=== PATIENT | male | born 1975 | race Two or more races ===

== ENCOUNTER 2020-06-05 10:53 | Outpatient (REF) | payer OTHER, SELFPAY ==
--- NOTE | ~2020-06-05 | XR_ITS ---
EXAMINATION: XR KNEE, LEFT CLINICAL INFORMATION: Left knee pain COMPARISON: None TECHNIQUE: Four views of the left knee. FINDINGS: There is small suprapatellar effusion. There is no fracture or dislocation or destructive process. No focal joint narrowing or erosive change or chondrocalcinosis. Bony mineralization appears normal. Hoffa's fat pad appears normal. There is mild spurring at the quadriceps insertion patella and at the origin patellar tendon lower patella. XR/XR knee LT 4V IMPRESSION: 1. Small suprapatellar effusion. No fracture, dislocation, or arthropathy. 2. Mild spurring extensor mechanism at insertion quadriceps tendon and origin patellar tendon.
== END 2020-06-05 10:54 | disposition home or self-care (01) ==
LOC: HO.HMGCX 10:53
PROVIDERS: Visit Provider Nurse Practitioner Family
DX: M25.562 Pain in left knee (principal)
CPT/HCPCS: 73564

== ENCOUNTER 2020-07-01 08:00 | Outpatient (RCR) | payer OTHER, SELFPAY ==
--- NOTE | 2020-06-19 17:46 | MHC.PT.EP ---
[facility] [place] [facility] [place] Office [place] [facility] [address] Juni Ross [address] [phone] F: [phone] F: [phone] F: [phone] F: [phone] Physical Therapy Plan of Care Date of Evaluation: 06/19/20 Date of Surgery: Diagnosis: L knee pain. 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 Pt is deemed an appropriate candidate to receive skilled PT in order to address his physical limitations to improve his functional ability. Frequency and Duration: The patient will be seen 2 x/wk x 5 wks. Short Term Goals: In 1 week: initiate HEP with evidence of compliance. Intermediate Goals: In 5 weeks: I with HEP. In 5 weeks: Pt will be able to negotiate 3 flights of stairs to and from his home with managed Sx. In 5 week: 5/5 MMT knee extension; initial: /5. Treatment Plan: Modalities to reduce pain, spasms and effusion. Manual therapy to restore motion and function. Therapeutic exercise to improve strength and flexibility. Neuromuscular re-education for posture and balance. Therapeutic activities to return to functional activities of daily living. Electronically signed by: Ashwin Monreal PT. Please sign and return to therapist. Thank you for your referral.
--- NOTE | 2020-12-06 13:49 | MHC.PT.DC ---
[facility] [place] [facility] [place] Office [place] Office [address] Juni Ross [address] [phone] F: [phone] F: [phone] F: [phone] F: [phone] Physical Therapy Discharge Report Diagnosis: L knee pain. Date of Surgery: Date of Evaluation: 06/19/20 Date of Discharge: 12/06/20 Treatments to Date: 4 Cancellations to Date: 0 No Shows to Date: 0 Discharge Status: Patient Elected to Stop Discharge Summary: Good dyllan for activities, challenged appropriately with WIN, no adverse effects. Electronically signed by: Ashwin Monreal PT. Please sign and return to therapist. Thank you for your referral.
== END 2020-12-06 13:50 | disposition home or self-care (01) ==
LOC: HO.PTCHIC 08:00
PROVIDERS: Visit Provider Nurse Practitioner Family
DX: M25.562 Pain in left knee (principal)
CPT/HCPCS: 97110; 97112; 97161

== ENCOUNTER 2020-07-16 14:55 | Outpatient (REF) | payer OTHER, SELFPAY ==
--- NOTE | ~2020-07-16 | XR_ITS ---
EXAMINATION: XR CHEST CLINICAL INFORMATION: U07.1 - COVID-19 COMPARISON: None TECHNIQUE: 2 views of the chest were obtained. FINDINGS: The lungs are clear. There is no airspace consolidation or groundglass opacity. The costophrenic sulci are well-defined. The heart is normal in size. The hilar and mediastinal contours are normal. There are degenerative changes thoracic spine with mild disc narrowing and vertebral spurring. XR/XR chest 2V IMPRESSION: Lungs clear.
== END 2020-07-16 14:56 | disposition home or self-care (01) ==
LOC: HO.HMGCX 14:55
PROVIDERS: Visit Provider Hospitalist
DX: R05 Cough (principal); U07.1 COVID-19
CPT/HCPCS: 71046

== ENCOUNTER 2020-08-24 06:47 | Outpatient (REF) | payer OTHER, SELFPAY ==
[2020-08-24 11:06] LABS: MANUAL DIFF FLAG NO
[2020-08-24 11:13] LABS: Basophils Percent Auto 0.7 % (0-2); Eosinophils Absolute Auto 0.1 X10*3/uL (0.0-0.4); Eosinophils Percent Auto 1.8 % (0-4); Hematocrit 47.2 % (42-52); Hemoglobin 16.1 g/dl (14.0-18.0); Lymphocytes Absolute Auto 1.4 X10*3/uL (1.2-4.9); Mean Corpuscular HGB Conc 34.1 g/dl (31.0-36.0); Mean Corpuscular Volume 88.1 fL (80-98); Mean Platelet Volume 9.7 fL (9.4-12.4); Monocytes Absolute Auto 0.6 X10*3/uL (0.1-1.2); Monocytes Percent Auto 14.5 % (2-11); Neutrophils Absolute Auto 2.3 X10*3/uL (2.0-8.3); Platelet Count 227 X10*3/uL (160-400); Red Blood Count 5.36 X10*6/uL (4.60-5.80); Red Cell Distribution Width 13.2 % (11.0-16.0); White Blood Count 4.4 X10*3/uL (4.8-10.8)
[2020-08-24 11:35] LABS: Alanine Aminotransferase 55 U/L (0-40); Anion Gap 12 (12-20); Aspartate Amino Transferase 31 U/L (5-37); Blood Urea Nitrogen 12 mg/dL (9-16); Calcium 8.8 mg/dL (8.4-10.2); Carbon Dioxide 29 mmol/L (22-29); Chloride 107 mmol/L (96-108); Cholesterol 213 mg/dL; Estimated Glomerular Filt Rate > 60; Glucose Fasting 91 mg/dL (60-99); HDL Cholesterol 36 mg/dL; LDL Cholesterol Calculated 150 mg/dl; Potassium 4.7 mmol/L (3.3-5.1); Sodium 143 mmol/L (135-145); Triglycerides 139 mg/dL
== END 2020-08-24 06:48 | disposition home or self-care (01) ==
LOC: HO.HMGCLDS 06:47
PROVIDERS: PCP Internal Medicine; Visit Provider Internal Medicine
DX: Z00.00 Encounter for general adult medical examination without abnormal findings (principal); I10 Essential (primary) hypertension; Z86.16 Personal history of COVID-19
CPT/HCPCS: 36415; 80048; 80061; 84450; 84460; 85025

== ENCOUNTER 2021-05-16 11:32 | Outpatient (REF) | payer OTHER, SELFPAY ==
--- NOTE | ~2021-05-16 | XR_ITS ---
EXAMINATION: CERVICAL AND THORACIC SPINE CLINICAL INFORMATION: Pain COMPARISON: None TECHNIQUE: Three-view thoracic spine and three-view cervical spine. FINDINGS: 3 views of the cervical spine do not demonstrate any acute fracture or subluxation. No abnormal prevertebral soft tissue swelling is seen. No significant joint space narrowing is noted. 3 views of the thoracic spine do not demonstrate abnormal paraspinal line bulge. There is marginal spurring seen throughout the thoracic spine. Pedicles appear intact. On lateral view there is question of vertical fracture through T11 however this is likely due to overlying bowel gas rather than true fracture and no loss of height is appreciated. XR/XR thoracic spine 3V IMPRESSION: No significant cervical spine abnormality identified. No definite thoracic spine fracture with probable artifact overlying the T11 vertebral body on lateral image as described.
--- NOTE | ~2021-05-16 | XR_ITS ---
EXAMINATION: CERVICAL AND THORACIC SPINE CLINICAL INFORMATION: Pain COMPARISON: None TECHNIQUE: Three-view thoracic spine and three-view cervical spine. FINDINGS: 3 views of the cervical spine do not demonstrate any acute fracture or subluxation. No abnormal prevertebral soft tissue swelling is seen. No significant joint space narrowing is noted. 3 views of the thoracic spine do not demonstrate abnormal paraspinal line bulge. There is marginal spurring seen throughout the thoracic spine. Pedicles appear intact. On lateral view there is question of vertical fracture through T11 however this is likely due to overlying bowel gas rather than true fracture and no loss of height is appreciated. XR/XR cervical spine 3V IMPRESSION: No significant cervical spine abnormality identified. No definite thoracic spine fracture with probable artifact overlying the T11 vertebral body on lateral image as described.
== END 2021-05-16 11:33 | disposition home or self-care (01) ==
LOC: HO.HMGCX 11:32
PROVIDERS: Visit Provider Nurse Practitioner Family
DX: M54.2 Cervicalgia (principal); M54.6 Pain in thoracic spine
CPT/HCPCS: 72040; 72072

== ENCOUNTER → 2021-06-11 08:47 | Outpatient (BNVA) | payer OTHER, SELFPAY | PROVIDERS: PCP Internal Medicine; Visit Provider Anesthesiology | DX: M47.816 Spondylosis without myelopathy or radiculopathy, lumbar region (principal); M54.2 Cervicalgia; Z87.891 Personal history of nicotine dependence | CPT/HCPCS: 99202 ==

== ENCOUNTER 2023-08-27 13:53 | Outpatient (AMB) | payer OTHER, SELFPAY ==
[2023-08-27 14:12] VITALS: BP 130/90; PULSE 69; TEMP 36.2; O2SAT 97; BMI 35.0
--- NOTE | 2023-08-27 14:12 | MHC.OFFWIV ---
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) Intake Note: pt is here today for rt shoulder pain started yesterday Patient Tobacco Use Status: Former Tobacco user Allergies No Known Allergies Allergy (Verified 08/27/23 14:15) Do you need a note to return to daycare/school/sports/work: Yes HPI HPI Comments History of Present Illness Details He presents to office with R shoulder pain R hand dominant Soreness to R shoulder upon waking yesterday and states it was intermittent 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 Last night when he went to bed + increased pain He said today pain worse + limited ROM today Lidocaine patch helped but still painful He denies numbness or tingling down arm but says pain goes from R shoukder into upper arm/biceps [facility] Medical History (Updated 08/27/23 @ 14:27 by Carmela Rodriguez PA-C) Spondylosis of lumbar spine Seasonal allergic rhinitis Obesity (BMI 30-39.9) History of COVID-19 Surgical History No pertinent past surgical history Family History (Updated 06/09/21 @ 11:28 by Sharon Zimmerman CMA) Brother Diabetes mellitus Social History Housing: Apartment Alcohol intake: never Patient Tobacco Use Status: Former Tobacco user e-Cigarette/Vaping Use: Never Used service: No Current occupational status: employed Review of Systems Const Denies chills, Denies fever(s) and Denies weakness Card Denies chest pain and Denies dyspnea Resp Denies cough and Denies dyspnea Musc Denies abnormal gait, Denies back pain, Denies myalgias, Reports arthralgias, Denies joint swelling, Reports limited range of motion, Reports stiffness and Denies tingling Skin/Breast Denies new lesions and Denies rash Neuro Denies abnormal gait, Denies tingling, Denies paresthesias and Denies weakness Physical Exam Vital Signs: Last Vital Signs Temp 97.2 F 08/27/23 14:12 Pulse 69 08/27/23 14:12 BP 130/90 H 08/27/23 14:12 Pulse Ox 97 08/27/23 14:12 Oxygen Delivery Method Room Air 08/27/23 14:12 BMI result Body Mass Index 35.0 General: Non-toxic, NAD. Speaking full sentences. Skin: Warm dry throughout. No R shoulder edema noted Respiratory: CTA bilaterally. No wheezes, rales or rhonchi Cardiac: RRR. No murmur. Radial pulse 2+ MSK: No R clavicular tenderness to palpation. +Tenderness to palpation R AC joint, bicipital groove and lateral humeral head No R elbow or wrist tenderness to palpation. + Limited ROM R shoulder in all directions Full ROM LUE extremity Neurology: A/O. No aphasia or facial droop. Gait without abnormality Psych: Good mood and affect Assessment & Plan Assessment & Plan (1) Shoulder pain, acute: Code(s): M25.519 - Pain in unspecified shoulder Qualifiers: Laterality: right Qualified Code(s): M25.511 - Pain in right shoulder Plan: Patient seen and evaluated. XRay R shoulder ordered: I reviewed and there was slight calcification at the inferior aspect of humeral head but no adhesive capsulitis, AC step off/seperation or fx noted Ortho referrl given Discussed gentle ROM and ice Robaxin for severe pain, lethargy, no alcohol or driving motor vehicle or operating machinery Patient gave verbal understanding and had no additional questions or concerns at time of discharge All questions answered Orders: Orders XR shoulder RT min 2V Today M25.519 - Pain in unspecified shoulder Referrals Orthopedics Referral M25.511 - Pain in right shoulder Medications: New methocarbamol 750 mg PO TID PRN 14 tabs 0RF muscle spasm Coding Level of Care Code Est Pt Level 3 (32204) Diagnoses Acute pain of right shoulder M25.511 Laterality: right
== END 2023-08-27 15:16 | disposition home or self-care (01) ==
PROVIDERS: PCP Internal Medicine; Visit Provider Physician Assistant
DX: M25.511 Pain in right shoulder (principal)
CPT/HCPCS: 99213

== ENCOUNTER 2023-08-27 14:25 | Outpatient (REF) | payer OTHER, SELFPAY ==
--- NOTE | ~2023-08-27 | XR_ITS ---
EXAMINATION: XR SHOULDER, RIGHT CLINICAL INFORMATION: Pain COMPARISON: None available. TECHNIQUE: AP external rotation, Grashey, scapular Y, and axillary views of the right shoulder. FINDINGS: The bones and soft tissues are normal. No fracture. Glenohumeral and acromioclavicular alignment is anatomic with normal joint space. No abnormal soft tissue calcifications. XR/XR shoulder RT min 2V IMPRESSION: Normal right shoulder.
== END 2023-08-27 14:26 | disposition home or self-care (01) ==
LOC: HO.HMGCX 14:25
PROVIDERS: PCP Nurse Practitioner Family; Visit Provider Physician Assistant
DX: M25.511 Pain in right shoulder (principal)
CPT/HCPCS: 73030

== ENCOUNTER 2023-09-08 10:58 | Outpatient (AMB) | payer OTHER, SELFPAY ==
--- NOTE | 2023-09-08 11:00 | A.OFFVIS_ITS ---
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 The patient describes his pain as sharp and severe in nature. He has gone to an urgent care clinic as well as an emergency room over the last few months. Did have an injection given into his right shoulder which gave him minimal relief. He has tried ibuprofen, tramadol and a muscle relaxant which gave him minimal relief. He has failed the last 6 weeks of conservative treatment. He reports difficulty lifting his right hand above shoulder height. The patient states that at times his right shoulder pain has been ?unbearable?. Allergies No Known Allergies Allergy (Verified 09/08/23 11:08) Medication List - Last Reconciled 09/08/23 by Luis Mccollum MD ibuprofen 600 mg PO Q8H PRN methocarbamol 750 mg PO Q12H PRN tramadol 50 mg PO Q12H PRN 2 weeks PFSH Medical History (Updated 09/08/23 @ 11:18 by Luis Mccollum MD) Spondylosis of lumbar spine Seasonal allergic rhinitis Obesity (BMI 30-39.9) History of COVID-19 Surgical History No pertinent past surgical history Family History (Updated 06/09/21 @ 11:28 by Sharon Zimmerman CMA) Brother Diabetes mellitus Social History Housing: Apartment Alcohol intake: never Patient Tobacco Use Status: Former Tobacco user e-Cigarette/Vaping Use: Never Used service: No Current occupational status: employed Physical Exam Vital Signs: BMI result Body Mass Index 35.0 Const Other: Well-nourished well-developed very friendly male awake alert and oriented x3 in no acute distress Extrem Other: Bilateral upper extremity examination shows good capillary refill, no skin lesions noted, normal sensation light touch Right shoulder examination shows decreased active and passive range of motion when compared to his left shoulder, 4+ over 5 strength with supraspinatus testing, positive impingement signs, tenderness over his acromioclavicular joint, no instability Results Reviewed Results Reviewed: X-rays of the patient's right shoulder show severe acromioclavicular joint narrowing, a type 3 acromion, no acute bony abnormalities Assessment & Plan Assessment & Plan (1) Right shoulder pain: Code(s): M25.511 - Pain in right shoulder Category: Medical Plan Mr. Melinda Bunch presents with progressively worsening right shoulder pain and weakness due to impingement syndrome, acromioclavicular joint arthritis and possible full-thickness rotator cuff tearing. Thus, I will send the patient for an MRI of his right shoulder to further evaluate the status of his rotator cuff tendons. I will see him back once the MRI is completed to discuss the findings and treatment options. He will continue with his range of motion exercises in the meantime to prevent stiffness. I did refill his prescriptions for Robaxin, ibuprofen and tramadol. Feel free to call me at any time should questions regarding his orthopedic management arise. Thank you very much for asking me to see this very friendly gentleman. I spent 20 minutes in reviewing the patient's records and imaging studies, seeing the patient and documenting in the medical record. Orders: Orders MR shoulder RT wo con Today M25.511 - Pain in right shoulder Medications: New tramadol 50 mg PO Q12H PRN 28 tabs 0RF pain 2 weeks methocarbamol 750 mg PO Q12H PRN 30 tabs 2RF spasms ibuprofen 600 mg PO Q8H PRN 60 tabs 2RF pain Coding Level of Care Code New Pt Level 3 (65092) Diagnoses Right shoulder pain M25.511
[2023-09-08 11:01] VITALS: BMI 35.0
== END 2023-09-08 11:20 | disposition home or self-care (01) ==
PROVIDERS: PCP Nurse Practitioner Family; Visit Provider Orthopaedic Surgery
DX: M25.511 Pain in right shoulder (principal)
CPT/HCPCS: 99204

== ENCOUNTER → 2023-09-08 10:58 | Outpatient (BNVA) | payer OTHER, SELFPAY | PROVIDERS: PCP Nurse Practitioner Family; Visit Provider Orthopaedic Surgery ==

== ENCOUNTER 2023-10-22 10:30 | Outpatient (REF) | payer OTHER, SELFPAY ==
--- NOTE | ~2023-10-22 | MR_ITS ---
EXAMINATION: MR SHOULDER WITHOUT CONTRAST, RIGHT CLINICAL INFORMATION: Right shoulder pain. COMPARISON: Radiographs 08/27/2023. TECHNIQUE: MRI of the shoulder without contrast was performed on a high-field scanner. FINDINGS: ROTATOR CUFF: Supraspinatus and infraspinatus tendinosis. No discrete tendon tear. No muscle atrophy or fatty infiltration. BICEPS: Normal. CORACOACROMIAL ARCH: The undersurface of the acromion is curved with no subacromial spur. Mild acromioclavicular osteoarthritis. Mild subacromial subdeltoid bursitis. LABRUM/CAPSULE: Evidence of a small undersurface tear of the posterosuperior labrum with a 5 mm paralabral cyst. GLENOHUMERAL JOINT/MARROW: No significant joint effusion. MR/MR shoulder RT wo con IMPRESSION: 1. Supraspinatus/infraspinatus tendinosis. No discrete rotator cuff tear. 2. Mild acromioclavicular osteoarthritis. Mild subacromial subdeltoid bursitis. 3. Small undersurface tear of the posterosuperior labrum with a 5 mm paralabral cyst.
== END 2023-10-22 10:31 | disposition home or self-care (01) ==
LOC: HO.MRI 10:30
PROVIDERS: PCP Nurse Practitioner Family; Visit Provider Orthopaedic Surgery
DX: M25.511 Pain in right shoulder (principal)
CPT/HCPCS: 73221

== ENCOUNTER 2023-11-04 12:00 | Outpatient (AMB) | payer OTHER, SELFPAY ==
[2023-11-04 12:45] VITALS: BP 130/82; PULSE 77; TEMP 36.9; O2SAT 98; BMI 35.1
--- NOTE | 2023-11-04 12:45 | MHC.OFFWIV ---
Intake Vital Signs 11/04/23 12:45 Height 5 ft 8 in Weight 231 lb 2 oz BMI 35.1 BP 130/82 Blood Pressure Location Rt brachial Position Sitting Pulse 77 Pulse Source Pulse Oximeter Temp 98.5 F Temp Source Oral Pulse Oximetry (%) 98 Oxygen Delivery Method Room Air Intake Visit Reasons: EP Sinus Infection Intake Note: Pt is here today for possible sinus infection. Pt mentioned feeling light headed, cough, ear pain, and also feels congested. Pt states he been felling like this for a little or a week. Patient Tobacco Use Status: Former Tobacco user Allergies No Known Allergies Allergy (Verified 11/04/23 12:50) Do you need a note to return to daycare/school/sports/work: Yes HPI EP Sinus Infection HPI Details This note is constructed using voice recognition software. While every effort has been made to ensure accuracy, army officer errors may have been included. The patient is a 48 year old male who presents to the clinic today with 2 day history of generalized viral symptoms including meds throat, sinus congestion, ear pain, cough. He denies, chills, shortness of breath. He does have some generalized body aches he has had no known sick contacts. 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 COUNTS INCLUDE [facility] BEDS AT THE [facility] Medical History (Updated 11/04/23 @ 13:27 by Olivia Villatoro NP) Spondylosis of lumbar spine Seasonal allergic rhinitis Obesity (BMI 30-39.9) History of COVID-19 Surgical History No pertinent past surgical history Family History (Updated 06/09/21 @ 11:28 by Sharon Zimmerman CMA) Brother Diabetes mellitus Social History Housing: Apartment Alcohol intake: never Patient Tobacco Use Status: Former Tobacco user e-Cigarette/Vaping Use: Never Used service: No Current occupational status: employed Review of Systems Const All systems reviewed & are unremarkable except as noted in HPI and below Physical Exam Vital Signs: Last Vital Signs Temp 98.5 F 11/04/23 12:45 Pulse 77 11/04/23 12:45 BP 130/82 11/04/23 12:45 Pulse Ox 98 11/04/23 12:45 Oxygen Delivery Method Room Air 11/04/23 12:45 BMI result Body Mass Index 35.1 Const General: cooperative, healthy appearing, comfortable and no acute distress Orientation/consciousness: patient oriented x3 Limitations: no limitations HEENT Head: Yes normal to inspection Ears: hearing grossly normal bilaterally, external ears normal and TM's normal bilaterally General nose exam: Normal external nose present, Normal nares present and No nasal discharge present Face and sinus: Yes normal facial exam and Yes sinuses nontender Mouth: Normal oral and palatal mucosa present and moist mucous membranes Throat: Yes tonsils normal, Yes uvula midline and Yes posterior oropharynx abnormal (Erythema) Eyes General: appearance normal, both eyes and all related structures Neck Neck: Yes normal visual inspection Resp Effort & Inspection: normal respiratory effort, able to speak in complete sentences, Actively coughing, no respiratory distress, not tachypneic, no tripod positioning and no use of accessory muscles Auscultation: clear to auscultation bilaterally Cardio Jugular venous distension: no JVD Rate: regular rate Rhythm: regular rhythm Heart sounds: S1 normal heart sound present, S2 normal heart sound present, no click, no gallops, no murmurs and no rubs Skin General skin exam: no rashes or lesions noted, elasticity normal and turgor normal Neuro General: patient oriented x3 Extrem General: Yes normal to inspection and Yes no clubbing, cyanosis or edema Assessment & Plan Assessment & Plan (1) Upper respiratory tract infection: Code(s): J06.9 - Acute upper respiratory infection, unspecified Qualifiers: URI type: unspecified URI Qualified Code(s): J06.9 - Acute upper respiratory infection, unspecified Plan: Supportive measures encouraged and reviewed. Advised antipyretics and NSAIDs for symptom management as well as consideration of Robitussin for cough syrup. Viral swab obtained to rule out coronavirus or influenza. Given patient's mild nature and symptoms, he would like to decline any antiviral therapy at this time. Letter provided for out of work for yesterday, today, and tomorrow. Given his timeline and the current CDC guidelines, he may return to work Wednesday even if he is positive for symptoms, however he is advised to wear a mask for an additional 5 days after that. Advised to wear a mask until he has results from this test today, and if negative he would not need to follow quarantine guidelines. Plan See above for full details and plan. Orders: Orders SARS-CoV2/FLU/RSV Today J06.9 - Acute upper respiratory infection, unspecified Coding Level of Care Code Est Pt Level 3 (78585) Diagnoses Upper respiratory tract infection, unspecified type J06.9 URI type: unspecified URI
== END 2023-11-04 13:27 | disposition home or self-care (01) ==
PROVIDERS: PCP Nurse Practitioner Family; Visit Provider Registered Nurse
DX: J06.9 Acute upper respiratory infection, unspecified (principal)
CPT/HCPCS: 99213

== ENCOUNTER 2023-11-04 13:08 | Outpatient (REF) | payer OTHER, SELFPAY ==
[2023-11-04 18:03] LABS: Influenza A PCR NEGATIVE (Negative); Influenza B PCR NEGATIVE (Negative); Resp Syncy Virus RNA Qual PCR NEGATIVE (Negative); SARS COV2 PCR INHOUSE POSITIVE (Negative)
== END 2023-11-04 13:09 | disposition home or self-care (01) ==
LOC: HO.LNP 13:08
PROVIDERS: Visit Provider Registered Nurse
DX: J06.9 Acute upper respiratory infection, unspecified (principal)
CPT/HCPCS: 0241U

== ENCOUNTER 2023-11-23 10:26 | Outpatient (AMB) | payer OTHER, SELFPAY ==
--- NOTE | 2023-11-23 10:29 | MHC.OFFVIS ---
Intake Visit Reasons: OV-Right shoulder MRI review Intake Note: Jose Alberto is a 48 year old male who presents with complaints of intermittent discomfort along the lateral aspect of his right shoulder. The patient states that his symptoms have improved somewhat over the last few weeks. He denies any weakness in his shoulder. He continues with his home stretching program. Allergies No Known Allergies Allergy (Verified 11/23/23 10:32) Medication List - Last Reconciled 11/24/23 by Luis Mccollum MD No Known Home Meds [facility] Medical History (Updated 11/04/23 @ 13:27 by Olivia Villatoro NP) Spondylosis of lumbar spine Seasonal allergic rhinitis Obesity (BMI 30-39.9) History of COVID-19 Surgical History No pertinent past surgical history Family History (Updated 06/09/21 @ 11:28 by Sharon Zimmerman CMA) Brother Diabetes mellitus Social History (Updated 11/23/23 @ 10:32 by LEONARDA Fisher) Housing: Apartment Alcohol intake: never Patient Tobacco Use Status: Former Tobacco user e-Cigarette/Vaping Use: Never Used service: No Current occupational status: employed 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 Physical Exam Const Other: Well-nourished well-developed very friendly male awake alert and oriented x3 in no acute distress Extrem Other: Bilateral upper extremity examination shows good capillary refill, no skin lesions noted, normal sensation light touch Right shoulder examination shows almost full range of motion when compared to his left shoulder, 4+ out of 5 strength with supraspinatus testing, positive impingement signs, tenderness over his acromioclavicular joint, no instability Results Reviewed Results Reviewed: MRI of the patient's right shoulder show severe acromioclavicular joint narrowing, a type 2 acromion, signal change within the supraspinatus tendon most likely due to rotator cuff tendinosis versus partial-thickness tearing Assessment & Plan Assessment & Plan (1) Right shoulder pain: Code(s): M25.511 - Pain in right shoulder Category: Medical Plan Mr. Melinda Bunch presents with intermittent right shoulder pain due to impingement syndrome, acromioclavicular joint arthritis and rotator cuff tendinosis versus partial-thickness tearing. I had a lengthy discussion with the patient regarding the treatment options. At this point the patient's symptoms are tolerable to him. He will continue with his activity modifications and home stretching program. The do's and don'ts of lifting were discussed at length with the patient. He will follow up with me on an as-needed basis should his symptoms worsen in any way. Feel free to call me at any time should questions regarding his orthopedic management arise. I spent 20 minutes in reviewing the patient's records and imaging studies, seeing the patient and documenting in the medical record. Coding Level of Care Code Est Pt Level 3 (01846) Diagnoses Right shoulder pain M25.511
== END 2023-11-23 10:47 | disposition home or self-care (01) ==
PROVIDERS: PCP Nurse Practitioner Family; Visit Provider Orthopaedic Surgery
DX: M25.511 Pain in right shoulder (principal)
CPT/HCPCS: 99212

== ENCOUNTER → 2023-11-23 10:26 | Outpatient (BNVA) | payer OTHER, SELFPAY | PROVIDERS: PCP Nurse Practitioner Family; Visit Provider Orthopaedic Surgery | DX: M25.511 Pain in right shoulder (principal) | CPT/HCPCS: 99212 ==

== ENCOUNTER 2024-03-06 12:52 | Outpatient (AMB) | payer OTHER, SELFPAY ==
[2024-03-06 13:00] VITALS: BP 128/78; PULSE 69; TEMP 37.1; O2SAT 98; BMI 34.7
--- NOTE | 2024-03-06 13:00 | MHC.OFFWIV ---
Intake Vital Signs 03/06/24 13:00 Height 5 ft 8 in Weight 228 lb 2 oz BMI 34.7 BP 128/78 Blood Pressure Location Lt brachial Position Sitting Pulse 69 Pulse Source Pulse Oximeter Temp 98.8 F Temp Source Oral Pulse Oximetry (%) 98 Oxygen Delivery Method Room Air Intake Visit Reasons: EP Lower back pain Intake Note: Pt is here today for lower RT back pain from due to shoveling snow. Pt mentions he is taking Ibupforen 600mg for pain. Patient Tobacco Use Status: Former Tobacco user Allergies No Known Allergies Allergy (Verified 03/06/24 13:00) Do you need a note to return to daycare/school/sports/work: Yes HPI EP Lower back pain HPI Details This note is constructed using voice recognition software. While every effort has been made to ensure accuracy, communications writer errors may have been included. The patient is a 48 year old male who presents to the clinic today with right lower back pain or the past 10 days. He reports that he had been moving things in his shed when his back started to hurt, so he started taking ibuprofen, and rested it. There was a snowstorm, last week he had to shovel 4 and his back started hurting even worse again. He does report a chronic history of sciatica, primarily in the right side with no symptoms in the past several years. He denies numbness and tingling, symptoms down his leg. He denies loss of control of bladder or bowel. 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 Review of Systems Const All systems reviewed & are unremarkable except as noted in HPI and below Physical Exam Vital Signs: Last Vital Signs Temp 98.8 F 03/06/24 13:00 Pulse 69 03/06/24 13:00 BP 128/78 03/06/24 13:00 Pulse Ox 98 03/06/24 13:00 Oxygen Delivery Method Room Air 03/06/24 13:00 BMI result Body Mass Index 34.7 Const General: cooperative, healthy appearing, comfortable, no acute distress and well developed Orientation/consciousness: patient oriented x3 Limitations: no limitations HEENT Head: Yes normal to inspection Ears: hearing grossly normal bilaterally General nose exam: Normal external nose present Face and sinus: Yes normal facial exam Eyes General: appearance normal, both eyes and all related structures Neck Neck: Yes normal visual inspection and Yes full ROM Resp Effort & Inspection: normal respiratory effort and able to speak in complete sentences Auscultation: clear to auscultation bilaterally Cardio Rate: regular rate Rhythm: regular rhythm Heart sounds: normal S1 and S2 Back/Spine/Pelvis Other: Right-sided SI tenderness. Reduced lateral rotation, forward bend reduced due to pain. Negative SLR, negative well SLR. No sciatic notch tenderness. Skin General skin exam: no rashes or lesions noted Neuro General: patient oriented x3 Extrem General: Yes normal to inspection Assessment & Plan Assessment & Plan (1) Lumbar back pain: Code(s): M54.50 - Low back pain, unspecified Plan: Patient with a SI joint tenderness. Advised to continue with supportive measures including NSAIDs for pain. We will try a muscle relaxers for symptomatic management. Advised patient to follow up as needed with worsening or failure to resolve. May benefit from physical therapy with prolonged symptoms. Plan See above for full details and plan. Medications: New cyclobenzaprine 1 to 2 orally 3 times a day PRN; 10 tabs 0RF muscle spasm Coding Level of Care Code Est Pt Level 3 (41931) Diagnoses Lumbar back pain M54.50
== END 2024-03-06 13:58 | disposition home or self-care (01) ==
PROVIDERS: PCP Nurse Practitioner Family; Visit Provider Registered Nurse
DX: M54.50 Low back pain, unspecified (principal)

== ENCOUNTER → 2024-03-06 12:52 | Outpatient (BNVA) | payer OTHER, SELFPAY | PROVIDERS: PCP Nurse Practitioner Family; Visit Provider Registered Nurse | DX: M54.50 Low back pain, unspecified (principal) | CPT/HCPCS: 99212 ==

== ENCOUNTER 2024-03-08 18:38 | Emergency (ER) | payer OTHER, SELFPAY ==
--- NOTE | ~2024-03-08 | XR_ITS ---
EXAMINATION: LUMBOSACRAL SPINE AND SI JOINTS CLINICAL INFORMATION: Back pain and right SI joint pain COMPARISON: None available. TECHNIQUE: 3 views lumbosacral spine, 3 views SI joints FINDINGS: Mild degenerative changes are present throughout the spine with some mild disc space narrowing at most levels most marked at L4-L5. Some mild endplate osteophytes are seen. Vertebral body heights are maintained. There is mild sclerosis involving the SI joints without bone destruction or fusion. XR/XR sacroiliac joint min 3V IMPRESSION: Mild degenerative changes in the spine and SI joints. Electronically signed by: Maciej Madden MD 03/08/2024 09:11 PM [facility]
--- NOTE | ~2024-03-08 | XR_ITS ---
EXAMINATION: LUMBOSACRAL SPINE AND SI JOINTS CLINICAL INFORMATION: Back pain and right SI joint pain COMPARISON: None available. TECHNIQUE: 3 views lumbosacral spine, 3 views SI joints FINDINGS: Mild degenerative changes are present throughout the spine with some mild disc space narrowing at most levels most marked at L4-L5. Some mild endplate osteophytes are seen. Vertebral body heights are maintained. There is mild sclerosis involving the SI joints without bone destruction or fusion. XR/XR lumbar spine 2-3V IMPRESSION: Mild degenerative changes in the spine and SI joints. Electronically signed by: Maciej Madden MD 03/08/2024 09:11 PM [facility]
[2024-03-08 19:06] VITALS: BP 149/88; PULSE 78; RESP 18; TEMP 37; O2SAT 98; BMI 34.3
--- NOTE | 2024-03-08 19:08 | ED.BACK ---
HPI - Back Pain/Injury General Chief Complaint: Back Pain/Injury Stated Complaint: Lower back pain Time Seen by Provider: 03/08/24 21:26 Related Data Previous Rx's ?Medication ?Instructions ?Recorded cyclobenzaprine 5 mg tablet See Rx Instructions PO TID PRN 03/06/24 muscle spasm #10 tabs cyclobenzaprine 10 mg tablet 10 mg PO Q8H #20 tabs 03/08/24 ibuprofen 600 mg tablet 600 mg PO Q6H PRN fever or pain 03/08/24 #30 tabs prednisone 20 mg tablet 40 mg (2 x 20 mg) PO DAILY #10 tabs 03/08/24 Allergies Allergy/AdvReac Type Severity Reaction Status Date / Time No Known Allergies Allergy Verified 03/08/24 19:08 PMFSH Past Medical History Medical History Spondylosis of lumbar spine Seasonal allergic rhinitis Obesity (BMI 30-39.9) History of COVID-19 Surgical History No pertinent past surgical history Family History Family History Brother Diabetes mellitus Social History Social History Housing: Apartment Alcohol intake: never Patient Tobacco Use Status: Former Tobacco user e-Cigarette/Vaping Use: Never Used Advance Directives: No Advance Directives Information Provided: No Do you have a plan to hurt others: No Plan service: No Current occupational status: employed 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 RME assessment and note performed by: Zehra Novak PA-C This is a 13-bkxm-fyo-male, with a hx of herniated discs, who presents to the ER with complaints of low back pain. Reports that he was shoveling his driveway last week and tweaked his back . Seen at urgent care last week, taking cyclobenzaprine, resting and symptoms have not improved. 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 Plan: X-rays, further ER evaluation needed. Reevaluation(s) Reevaluation #1: Medications Administered Discontinued Medications Generic Name Dose Route Start Last Admin Trade Name Freq PRN Reason Stop Dose Admin Dexamethasone 10 mg 03/08/24 21:45 03/08/24 22:07 Dexamethasone 2 Mg Tablet PO 03/08/24 21:46 10 mg ONCE ONE Administration Discharge Plan Discharge Clinical Impression: Strain of lumbar region Patient Disposition: Home, Self-Care Instructions: Low Back Strain (ED) Additional Instructions: Take muscle relaxant as prescribed along with ibuprofen Prednisone for increased inflammation Follow with the PCP Rest apply ice pack Prescriptions: New cyclobenzaprine 10 mg tablet 10 mg PO Q8H Qty: 20 0RF prednisone 20 mg tablet 40 mg PO DAILY Qty: 10 0RF ibuprofen 600 mg tablet 600 mg PO Q6H PRN (Reason: fever or pain) Qty: 30 0RF No Action cyclobenzaprine 5 mg tablet See Rx Instructions PO TID PRN (Reason: muscle spasm) Qty: 10 0RF Rx Instructions: 1 to 2 orally 3 times a day PRN; Stand Alone Forms: Work/School Release Interventions: ED Discharge Assessment Last Done: 03/08/24 22:15 Discharge Date/Time: 03/08/24 22:17 Print Language: Italian
[2024-03-08 21:44] VITALS: BP 156/95; PULSE 69; RESP 19; TEMP 36.7; O2SAT 99
--- NOTE | 2024-03-08 21:50 | ED_ITS ---
HPI - Back Pain/Injury General Chief Complaint: Back Pain/Injury Stated Complaint: Lower back pain Time Seen by Provider: 03/08/24 21:26 Source: patient Mode of arrival: ambulatory Limitations: no limitations History of Present Illness ED Provider: HPI Narrative: Patient's history of chronic back pain usually stable does not require any medication last week patient was shoveling snow since then been having pain in the lower back seen at outpatient clinic started on Flexeril still having the pain no radiation of the pain to the leg no bladder or bowel involvement patient ambulatory with antalgic gait Related Data Previous Rx's ?Medication ?Instructions ?Recorded cyclobenzaprine 5 mg tablet See Rx Instructions PO TID PRN 03/06/24 muscle spasm #10 tabs cyclobenzaprine 10 mg tablet 10 mg PO Q8H #20 tabs 03/08/24 ibuprofen 600 mg tablet 600 mg PO Q6H PRN fever or pain 03/08/24 #30 tabs prednisone 20 mg tablet 40 mg (2 x 20 mg) PO DAILY #10 tabs 03/08/24 Allergies Allergy/AdvReac Type Severity Reaction Status Date / Time No Known Allergies Allergy Verified 03/08/24 19:08 Review of Systems Review of Systems: Yes all other systems are reviewed and are negative PMFSH Past Medical History Medical History Spondylosis of lumbar spine Seasonal allergic rhinitis Obesity (BMI 30-39.9) History of COVID-19 Surgical History No pertinent past surgical history Family History Family History Brother Diabetes mellitus Social History Social History Housing: Apartment Alcohol intake: never Patient Tobacco Use Status: Former Tobacco user e-Cigarette/Vaping Use: Never Used Advance Directives: No Advance Directives Information Provided: No Do you have a plan to hurt others: No Plan service: No Current occupational status: employed 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 Oriented X3. No acute distress. Eyes: PERRLA, No Nystagmus ENT: Pharynx normal. Oral Mucosa moist Neck: Normal inspection. Neck supple. CVS: Normal heart rate and rhythm. Pulses normal. Respiratory: No respiratory distress. Equal air entry bilateral, no wheezing/rales/rhonchi Abdomen: Soft and nontender. Bowel sounds are present, no mass palpable, no CVA tenderness back: Diffuse tenderness right lumbar paraspinal area no midline tenderness SLR negative bilaterally Skin: Skin warm and dry. Normal skin color. Normal skin turgor. Extremities: No lower extremity edema. No calf tenderness Neuro: Oriented X 3. No motor deficit. No sensory deficit.No cerebellar signs , cranial nerves II-XII intact Medical Decision Making Medical Decision Making MDM Narrative: Patient's lumbar strain will prescribe short course of prednisone ibuprofen and Flexeril advised to follow up as outpatient Independent Interpretation I performed an independent interpretation of an: Plain X-Ray Radiology Impression Discussion of test interpretation with radiology: I have reviewed the radiologist's reading. Discharge Plan Discharge Clinical Impression: Strain of lumbar region Patient Disposition: Home, Self-Care Instructions: Low Back Strain (ED) Additional Instructions: Take muscle relaxant as prescribed along with ibuprofen Prednisone for increased inflammation Follow with the PCP Rest apply ice pack Prescriptions: New cyclobenzaprine 10 mg tablet 10 mg PO Q8H Qty: 20 0RF prednisone 20 mg tablet 40 mg PO DAILY Qty: 10 0RF ibuprofen 600 mg tablet 600 mg PO Q6H PRN (Reason: fever or pain) Qty: 30 0RF No Action cyclobenzaprine 5 mg tablet See Rx Instructions PO TID PRN (Reason: muscle spasm) Qty: 10 0RF Rx Instructions: 1 to 2 orally 3 times a day PRN; Stand Alone Forms: Work/School Release Print Language: German
[2024-03-08] MEDS: dexAMETHasone 2 MG TABLET 10 MG PO (22:07)
[2024-03-08 22:15] VITALS: BP 0/0; PULSE 0; RESP 0; TEMP -17.7; TEMP 0; O2SAT 0
== END 2024-03-08 22:17 | disposition home or self-care (01) ==
PROVIDERS: Emergency Provider Internal Medicine; PCP Nurse Practitioner Family
DX: S39.012A Strain of muscle, fascia and tendon of lower back, initial encounter (principal); X50.0XXA Overexertion from strenuous movement or load, initial encounter; Y93.H1 Activity, digging, shoveling and raking; Y92.018 Other place in single-family (private) house as the place of occurrence of the external cause; Y99.9 Unspecified external cause status
CPT/HCPCS: 72100; 72202; 99282; 99283; J8540

== ENCOUNTER 2024-04-10 12:50 | Outpatient (AMB) | payer OTHER, SELFPAY ==
[2024-04-10 12:51] VITALS: BP 136/80; PULSE 69; O2SAT 98; BMI 34.5
--- NOTE | 2024-04-10 12:51 | MHC.PC.OV ---
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 Accompanied by: Self / Same As Patient Allergies No Known Allergies Allergy (Verified 04/10/24 13:36) Medication List - Last Reconciled 04/10/24 by TIGRE Lira No Known Home Meds Tobacco use date assessed: 04/10/24 Dental Screening Dental Screen Date: 04/10/24 Did you have a dental visit in the last 12 months?: Yes Did you have a dental problem in the last 6 months where you did not have access to dental care?: No Was dental information given to patient?: Patient has dentist HPI 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 There is no history of acute symptoms or emergencies. The patient denies experiencing chest pain, shortness of breath, constipation, diarrhea, numbness, tingling, anxiety, depression, suicidal ideation, homicidal ideation, and urinary symptoms. An umbilical hernia and diastasis recti were noted during the examination; however, no further symptoms or complications related to these conditions were discussed. The patient is also noted to be obese and has refused the influenza vaccination. Health Maintenance - Patient refused influenza vaccination - Physical examination conducted - Screening tests have not been performed yet, but were discussed Social History Review of Systems - Cardiovascular: Denies chest pain. - Respiratory: Denies shortness of breath. - Gastrointestinal: Denies constipation and diarrhea. - Neurological: Denies numbness and tingling. - Psychological: Denies anxiety, depression, suicidal ideation, and homicidal ideation. - Genitourinary: Denies urinary symptoms. Physical Exam General: Cooperative, healthy appearing, comfortable, no acute distress and well developed Orientation: Patient oriented x3 Limitations: No limitations Head: Normal to inspection Ears: Hearing grossly normal bilaterally Nose: Normal external nose present Face and sinus: Normal facial exam Eyes: Appearance normal, both eyes and all related structures Neck: Normal visual inspection and Yes full ROM Respiratory: Normal respiratory effort and able to speak in complete sentences. Clear to auscultation bilaterally Cardiovascular: Regular rate and rhythm. Normal S1 and S2 GI: Obese, umbilical hernia noted, and diastasis rectus Skin: No rashes or lesions noted Neuro: Patient oriented x3 Extremities: Normal to inspection Results Plan - Screenings: Referral for the necessary screening tests was discussed and will be performed. - Physical examination findings: Plan to monitor and manage obesity; further consultation or intervention for the umbilical hernia and diastasis recti may be warranted as needed. - Vaccination: Encouragement to consider the influenza vaccination, despite current refusal. Patient was informed and verbally consented to the use of an ambient scribe for clinic note documentation during this visit. Discussion Notes I discussed with the patient the findings of obesity, umbilical hernia, and diastasis recti observed during the examination. I explained the importance of managing obesity and the potential implications of the hernia and diastasis recti, including the options for monitoring and potential treatment if necessary. I also discussed the benefits of receiving the influenza vaccination and addressed the patient?s concerns leading to refusal. Screening tests are planned to better understand the patient's health status. Patient Instructions - Consider options and benefits of the influenza vaccination. - Plan for scheduled screening tests in the near future. - Monitor and manage body weight through lifestyle changes. - Follow recommendations for care of umbilical hernia and diastasis recti as advised. 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 1. Little interest or pleasure in doing things: not at all 2. Feeling down, depressed, or hopeless: not at all 3. Trouble falling or staying asleep, or sleeping too much: not at all 4. Feeling tired or having little energy: not at all 5. Poor appetite or overeating: not at all 6. Feeling bad about yourself - or that you are a failure or have let yourself or your family down: not at all 7. Trouble concentrating on things, such as reading the newspaper or watching television: not at all 8. Moving or speaking so slowly that other people could have noticed. Or the opposite - being so fidgety or restless that you have been moving around a lot more than usual: not at all 9. Thoughts that you would be better off or of hurting yourself in some way: not at all Total score: 0 Depression Screening Interpretation: Negative Depression Screening Done: Yes 57288 - PHQ-9 Billing: Yes Source: Developed by Drs. Bob Badillo, Fide Langley, Albino Ulloa and colleagues, with an educational janine from [employer]. Thrive Questionnaire Date Thrive assessed: 04/10/24 I am a: Patient What is your living situation today?: I have a steady place to live Within the past 12 months, did the food you bought not last and you didn't have the money to get more?: Never true Within the past 12 months, did you worry whether your food would run out before you got money to buy more?: Never true Do you have trouble paying for medicines?: No Do you have trouble getting transportation to medical appointments?: No Do you have trouble paying your heating and electricity bill?: No Do you have trouble taking care of your child, family member or friend?: No Do you have trouble with day-to-day activities such as bathing, preparing meals, shopping, managing finances, etc.?: No Are you currently unemployed and looking for a job?: No Are you interested in more education?: No Please select the resources that you would like help with: None Currently or been in a relationship where the following occur: No concerns reported THRIVE Score: 0 AUDIT C Alcohol Use Questionnaire (AUDIT-C) 1. How often do you have a drink containing alcohol?: 2-4 times a month 2. How many drinks containing alcohol do you have on a typical day when you are drinking?: 3 or 4 3. How often do you have six or more drinks on one occasion?: Never Total Score: 3 Score Reviewed/Action Taken: Yes KAEL-7 AMB Questionnaire KAEL-7 Date KAEL - 7 assessed: 04/10/24 Feeling nervous, anxious, or on edge: 0 = Not at all Not being able to stop or control worryin = Not at all Worrying too much about different things: 0 = Not at all Trouble relaxin = Not at all Being so restless that it is hard to sit still: 0 = Not at all Becoming easily annoyed or irritable: 2 = More than half the days Feeling afraid as if something awful might happen: 0 = Not at all Total KAEL-7 score (0-4 normal; 5-9 mild; 10-14 moderate; 15-21 severe): 2 Source: Developed by Drs. Bob Badillo, Fide Langley, Albino Ulloa and colleagues, with an educational janine from [employer]. KAEL-7 Assessment Billing KAEL-7 Assessment Tool: KAEL-7 Assessment 95547 Physical exam (Primary Care) Vital Signs: Last Vital Signs Pulse 69 04/10/24 12:51 BP 136/80 04/10/24 12:51 Pulse Ox 98 04/10/24 12:51 Oxygen Delivery Method Room Air 04/10/24 12:51 BMI result Body Mass Index 34.5 Tobacco/Smoking Status: Tobacco use Status Tobacco use date assessed 04/10/24 04/10/24 12:58 Patient Tobacco Use Status Former Tobacco user 04/10/24 12:58 e-Cigarette/Vaping Use Never Used 04/10/24 12:58 PHQ-9: PHQ-9 Score PHQ-9: Total score 0 04/10/24 12:58 Depression Screening Interpretation: Negative Thrive Assessment: Date of Thrive Assessment Date Thrive assessed 04/10/24 04/10/24 12:58 Currently or been in a relationship where the following occur: No concerns reported Coding Level of Care Code New Pt Prev Care 40-64y(69388) Diagnoses Physical exam Z00.00 Screening for colon cancer Z12.11 Additional Codes KAEL-7 Assessment Billing - KAEL-7 Assessment Tool: KAEL-7 Assessment 19843 ([id number]) PHQ-9 - 36366 - PHQ-9 Billing: Yes ([id number]) Assessment & Plan Assessment & Plan (1) Physical exam: Code(s): Z00.00 - Encounter for general adult medical examination without abnormal findings Category: Medical (2) Screening for colon cancer: Code(s): Z12.11 - Encounter for screening for malignant neoplasm of colon Category: Medical Plan . Orders: Orders Comprehensive [place]. Panel Fast Today Z00.00 - Encounter for general adult medical examination without abnormal findings UA CC w/rflx Micro + Cult Today Z00.00 - Encounter for general adult medical examination without abnormal findings Prostate Specific Antigen Scr Today Z00.00 - Encounter for general adult medical examination without abnormal findings, Z12.5 - Encounter for screening for malignant neoplasm of prostate Complete Blood Count Auto Diff Today Z00.00 - Encounter for general adult medical examination without abnormal findings TSH reflex Free T4 Today Z00.00 - Encounter for general adult medical examination without abnormal findings Lipid Panel Today Z00.00 - Encounter for general adult medical examination without abnormal findings Referrals Gastroenterology Referral Z12.11 - Encounter for screening for malignant neoplasm of colon
== END 2024-04-10 13:35 | disposition home or self-care (01) ==
PROVIDERS: PCP Nurse Practitioner Family; Visit Provider Nurse Practitioner Family
DX: Z00.00 Encounter for general adult medical examination without abnormal findings (principal); Z12.11 Encounter for screening for malignant neoplasm of colon

== ENCOUNTER → 2024-04-10 12:50 | Outpatient (BNVA) | payer OTHER, SELFPAY | PROVIDERS: PCP Nurse Practitioner Family; Visit Provider Nurse Practitioner Family | DX: Z00.00 Encounter for general adult medical examination without abnormal findings (principal) | CPT/HCPCS: 96127; 99386 ==

== ENCOUNTER 2024-04-24 09:35 | Outpatient (REF) | payer OTHER, SELFPAY ==
[2024-04-24 13:16] LABS: MANUAL DIFF FLAG NO
[2024-04-24 13:19] LABS: Appearance Urine Clear; Color Urine Yellow; Glucose Urine UA Negative (Negative); Leukocyte Esterase Urine Negative (Negative); Nitrite Urine Negative (Negative); PH 5.5 (5.0-9.0); Specific Gravity - Urine 1.025 (1.005-1.025); UMIC TRIGGER UACC YES; Urine Blood Small (1+) (Negative); Urine Ketones Negative (Negative); Urine Protein Negative (Neg-Trace)
[2024-04-24 13:22] LABS: Basophils Percent Auto 0.8 % (0-2); Eosinophils Absolute Auto 0.1 X10*3/uL (0.0-0.4); Eosinophils Percent Auto 1.9 % (0-4); Hematocrit 48.1 % (42.0-52.0); Hemoglobin 16.4 g/dl (14.0-18.0); Imm Gran Abs Auto 0.01 X10*3/uL (0.00-0.03); Imm Gran Pct Auto 0.3 % (0.0-0.4); Lymphocytes Absolute Auto 1.2 X10*3/uL (1.2-4.9); Lymphocytes Percent Auto 31.1 % (20-40); Mean Corpuscular HGB Conc 34.1 g/dl (31.0-36.0); Mean Corpuscular Hemoglobin 29.8 pg (27.0-33.0); Mean Corpuscular Volume 87.3 fL (80.0-98.0); Mean Platelet Volume 10.1 fL (9.4-12.4); Monocytes Absolute Auto 0.5 X10*3/uL (0.1-1.2); Neutrophils Percent Auto 52.9 % (45-73); Platelet Count 209 X10*3/uL (160-400); Red Blood Count 5.51 X10*6/uL (4.60-5.80); Red Cell Distribution Width 13.2 % (11.0-16.0); White Blood Count 3.8 X10*3/uL (4.8-10.8)
[2024-04-24 13:49] LABS: Alanine Aminotransferase 53 U/L (0-40); Albumin Level 4.3 g/dL (3.5-5.0); Alkaline Phosphatase 57 U/L (39-117); Anion Gap 8 (12-20); Aspartate Amino Transferase 34 U/L (5-37); Bilirubin Total 1.2 mg/dL (0.0-1.0); Blood Urea Nitrogen 15 mg/dL (9-16); Calcium 8.8 mg/dL (8.4-10.2); Carbon Dioxide 26 mmol/L (22-29); Chloride 111 mmol/L (96-108); Cholesterol 169 mg/dL (<200); Estimated Glomerular Filt Rate > 60; Glucose Fasting 94 mg/dL (60-99); HDL Cholesterol 36 mg/dL (>40); LDL Cholesterol Calculated 108 mg/dL (<100); Potassium 3.9 mmol/L (3.3-5.1); Sodium 141 mmol/L (135-145); Triglycerides 127 mg/dL (<150)
[2024-04-24 13:50] LABS: Bacteria Urine None Seen (None Seen); Hyaline Casts Urine 0-2 /LPF (0-2); Squamous Epithelial Cell Urine 0-2 /HPF (0-2); WBC Urine 0-5 /HPF (0-5)
[2024-04-24 13:53] LABS: TSH reflex Free T4 1.84 uIU/mL (0.32-4.0)
[2024-04-24 13:57] LABS: Prostate Specific Antigen Scr 1.15 ng/mL (<0.05-4.0)
== END 2024-04-24 09:36 | disposition home or self-care (01) ==
LOC: HO.HMGCLDS 09:35
PROVIDERS: PCP Nurse Practitioner Family; Visit Provider Nurse Practitioner Family
DX: Z00.00 Encounter for general adult medical examination without abnormal findings (principal); Z12.5 Encounter for screening for malignant neoplasm of prostate
CPT/HCPCS: 36415; 80053; 80061; 81001; 84153; 84443; 85025

== ENCOUNTER 2024-05-22 08:48 | Outpatient (REF) | payer OTHER, SELFPAY ==
--- NOTE | ~2024-05-22 | US_ITS ---
CLINICAL HISTORY: R74.8 - Abnormal levels of other serum enzymes US abdomen complete. COMPARISON: None Technique: Real time sonographic imaging, including color-flow imaging, was performed by the special events assistant. Multiple business office representative static images were saved for review. FINDINGS: The visualized aorta and inferior vena cava are normal caliber. The visualized portions of the pancreas appear normal. The liver has diffusely increased echogenicity. Cystic lesion within the left lobe of the liver with thin internal septation measuring 1.5 x 1.2 x 1.5 cm. Liver, right lobe size: 13.1 cm, normal. The gallbladder is normal in size. No cholelithiasis or sludge identified. There is a negative sonographic Tyler's sign. Gallbladder wall: 2 mm, normal. Common bile duct: 3 mm, normal. Right kidney: Cortical medullary differentiation is maintained. Normal color flow by Doppler. No calculus or focal parenchymal abnormality identified. No hydronephrosis. Right kidney length: 11.8 cm Left kidney: Cortical medullary differentiation is maintained. Left renal simple cyst at the inferior pole measuring 3.2 x 2.5 x 2.9 cm. Left renal simple cyst in the mid portion measuring 10.3 x 8.1 x 9.6 cm. No hydronephrosis. Left kidney length: 15.4 cm The spleen has normal echogenicity. Splenic length: 11.4 cm, normal. No free intraperitoneal fluid identified. IMPRESSION: 1. Hepatic steatosis. 2. Hepatic cyst within the left lobe measuring up to 1.5 cm. 3. Left renal simple cysts measuring up to 10.3 cm. This document has been electronically signed by: Narayan Hopkins MD on 05/22/2024 16:03:37
== END 2024-05-22 08:49 | disposition home or self-care (01) ==
LOC: HO.HMGCX 08:48
PROVIDERS: PCP Nurse Practitioner Family; Visit Provider Nurse Practitioner Family
DX: R74.8 Abnormal levels of other serum enzymes (principal)
CPT/HCPCS: 76700

== ENCOUNTER → 2024-05-22 08:49 | Outpatient (BNV) | payer OTHER, SELFPAY | PROVIDERS: PCP Nurse Practitioner Family; Visit Provider Radiology Diagnostic Radiology | DX: R74.01 Elevation of levels of liver transaminase levels (principal); K76.0 Fatty (change of) liver, not elsewhere classified; N28.1 Cyst of kidney, acquired | CPT/HCPCS: 76700 ==

== ENCOUNTER → 2024-06-20 11:07 | Outpatient (BNV) | payer OTHER, SELFPAY | PROVIDERS: Visit Provider Internal Medicine Medical Oncology | DX: D72.818 Other decreased white blood cell count (principal) | CPT/HCPCS: 99204 ==

== ENCOUNTER 2024-06-20 12:29 | Outpatient (AMB) | payer OTHER, SELFPAY ==
--- NOTE | 2024-06-20 13:23 | MHC.OFFVIS ---
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 Mann. He has a past medical history of spondylosis of lumbar spine, seasonal allergies, and obesity. He presents to the office today as a new patient for microscopic hematuria. In discussion with the patient today reports having followed up with his PCP at which time microscopic hematuria was noted and recommendations were made for urology referral for further assessment evaluation. He reports having a scheduled CT urogram that was ordered by his PCP planned for the next week. He also discusses his recent appointment with Oncology for his low white blood cell count. When asked he denies any bothersome urinary issues. He denies urinary urgency, urinary frequency, incontinence, nocturia, hematuria, dysuria, foul smelling urine, changes to urinary stream, flank pain, fever, and or chills. He is happy with his current voiding parameters. In office urinalysis results reviewed with the patient today 2+ microscopic hematuria otherwise within normal limits. When asked he does report a previous history of nicotine dependence as a teenager however reports it was socially in no longer than a year. 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 We discussed at length potential causes of microscopic hematuria as well as further workup in risks and benefits of these interventions. I discussed reasons for blood in the urine may include but are not limited to kidney stones, cancer in the urinary tract, BPH, kidney stone disease or inflammatory conditions of the urinary tract. I have discussed workup to include cystoscopy evaluation. He otherwise offers no other issues or concerns at this time. In review of patient's chart it appears PSA 04/22 1.2. Plan We will continue with diagnostic imaging via a CT scan to evaluate microscopic hematuria, influenced by occupational exposure risk and previous smoking habit. The intent is to exclude significant pathologies such as bladder cancer. Urine cytology was commenced to aid in detecting such malignancies: cystoscopy remains an option for direct visualization of the bladder. Continued monitoring of urine cytologies is planned, as well as following the patient's hematology assessments separately. Current plans emphasize patient understanding and consent for further exploration of risks given the occupational exposure background. Patient was informed and verbally consented to the use of an ambient scribe for clinic note documentation during this visit. Discussion Notes During our discussion, I informed the patient about the link between microscopic hematuria and possible health risks, given his smoking history and current tobacco dust exposure. The importance of imaging through a CT scan was explained, specifically aiming to rule out concerning pathologies. I communicated the role of cytology in identifying such cases and outlined the visual confirmation benefits of a cystoscopy, including risks and alternatives. The procedures' risks of infection and bleeding, albeit minimal, were discussed with the potential for future consideration. The patient agreed to proceed with the CT scanning and understand the ongoing need for regular re-evaluation of urine samples. 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 Current occupational exposures/hazards: No Cognitive needs: No Hearing needs: No Vision needs: Yes Review of Systems Const All systems reviewed & are unremarkable except as noted in HPI and below Physical Exam Const General: cooperative, healthy appearing, comfortable, no acute distress, well developed, alert and awake Orientation/consciousness: patient oriented x3 Limitations: no limitations HEENT Head: Yes normal to inspection, Yes normocephalic and Yes atraumatic Ears: hearing grossly normal bilaterally Eyes General: appearance normal, both eyes and all related structures Neck Neck: Yes normal visual inspection and Yes trachea midline Chest Chest palpation & inspection: normal inspection of the chest Resp Effort & Inspection: normal respiratory effort and able to speak in complete sentences Cardio Rate: regular rate GI Inspection: Yes normal to inspection General: Yes no CVA tenderness Back/Spine/Pelvis Back: no CVA tenderness Skin General skin exam: no rashes or lesions noted Neuro General: patient oriented x3 Extrem General: Yes normal to inspection Psych Appearance: grossly normal and well kempt Mental Status: mental status grossly normal Speech and movement: Normal speech and movement present and Clear speech present Affect: normal affect Attitude: cooperative Thought process: Normal thought process present Thought content: Normal thought content present Insight: Fair insight present (Psych) Judgement: Fair judgement present (Psych) Results AMB Urinalysis, Automated UA Leukoctes 0 Vanda/uL Last Edit by [facility] on 06/20/24 13:44 UA Nitrite Last Edit by [facility] on 06/20/24 13:44 UA Urobilinogen 0.2 mg/dL Last Edit by [facility] on 06/20/24 13:44 UA Protein 0 mg/dL Last Edit by [facility] on 06/20/24 13:44 UA pH 7.0 Last Edit by [facility] on 06/20/24 13:44 UA Blood 25 Evens/uL Last Edit by [facility] on 06/20/24 13:44 UA Specific [place] 1.015 Last Edit by [facility] on 06/20/24 13:44 UA Ketone Last Edit by [facility] on 06/20/24 13:44 UA Bilirubin 0 mg/dL Last Edit by [facility] on 06/20/24 13:44 UA Glucose 0 mg/dL Last Edit by [facility] on 06/20/24 13:44 Results Reviewed Results Reviewed: Laboratory Last Values Urine pH (Auto) 7.0 06/20/24 13:43 Specific [place] (Auto) 1.015 06/20/24 13:43 Urine Protein (Auto) 0 mg/dL 06/20/24 13:43 Glucose (UA)(Auto) 0 mg/dL 06/20/24 13:43 Urine Blood (Auto) 25 Evens/uL 06/20/24 13:43 Urine Bilirubin (Auto) 0 mg/dL 06/20/24 13:43 Urine Urobilinogen (Auto) 0.2 mg/dL 06/20/24 13:43 Leukocyte Esterase (Auto) 0 Vanda/uL 06/20/24 13:43 Assessment & Plan Assessment & Plan (1) Microscopic hematuria: Code(s): R31.29 - Other microscopic hematuria Category: Medical Plan In office urinalysis results with the patient today; as noted above; will send for urine cytology. Keep planned/scheduled CT urogram We discussed at length potential causes of microscopic hematuria as well as further workup to include cystoscopy Will continue with surveillance monitoring at this time. Patient currently denies any bothersome urinary issues or concerns. He reports be happy with current voiding parameters. Follow-up in 3 months with imaging to be completed prior; or sooner with any issues, concerns, and or questions. Orders: Orders AMB Urinalysis Automated Today Z13.9 - Encounter for screening, unspecified Urine Cytology Today R31.29 - Other microscopic hematuria Patient Instructions: The patient had an opportunity to ask questions regarding the treatment plan. All questions were answered. Physical exam, labs, and imaging were discussed and reviewed in detail. As well as risks, benefits, and discussion of treatment choices. No major barriers to understanding were identified. The patient expressed understanding and agreement with the above treatment plan. The patient was made aware they should contact our office by phone for worsening of their current condition, the appearance of new symptoms, or with any questions or concerns. Compliance is encouraged with any medications and follow up testing that is ordered. It is a privilege to be allowed the opportunity to participate in? your urological care.? Again, if you have any questions or concerns If you have any questions or concerns please do not hesitate to contact me. The office is [phone]. This note is constructed using voice recognition software. While every effort has been made to ensure accuracy bellhop service captain errors may have been included. Yours sincerely, TIGRE Lau Coding Level of Care Code New Pt Level 3 (97043) Diagnoses Microscopic hematuria R31.29
== END 2024-06-20 14:05 | disposition home or self-care (01) ==
LOC: HO.HUSH 12:30
PROVIDERS: PCP Nurse Practitioner Family; Visit Provider Nurse Practitioner Family
DX: Z13.9 Encounter for screening, unspecified (principal); R31.29 Other microscopic hematuria
CPT/HCPCS: 99203

== ENCOUNTER 2024-06-20 12:29 | Outpatient (REF) | payer OTHER, SELFPAY ==
[2024-06-20 17:34] LABS: Urine Cytology See Pathology rpt
== END 2024-06-20 12:30 | disposition home or self-care (01) ==
LOC: HO.LNP 12:29
PROVIDERS: PCP Nurse Practitioner Family; Visit Provider Nurse Practitioner Family
DX: R31.29 Other microscopic hematuria (principal); D72.819 Decreased white blood cell count, unspecified
CPT/HCPCS: 81003; 88112; 99202

== ENCOUNTER 2024-07-16 14:56 | Emergency (ER) | payer OTHER, SELFPAY ==
[2024-07-16 15:00] VITALS: BP 137/84; PULSE 81; RESP 16; TEMP 36.6; O2SAT 97; BMI 34.7
--- NOTE | 2024-07-16 15:02 | ED_ITS ---
HPI - General Adult General Chief complaint: Skin/Abscess/Foreign Body Stated complaint: facial swelling Time Seen by Provider: 07/16/24 15:49 Source: patient and RN notes reviewed Mode of arrival: ambulatory Limitations: no limitations History of Present Illness ED Provider: Zehra Delvalle PA-C HPI narrative: This is a 49-year-old male, with a past medical history of seasonal allergic rh initis, spondylosis of the lumbar spine, who presents emergency department with concerns for bilateral nares swelling. Patient states that since Wednesday he was noticed increased swelling and pain to the tip of his nose. He reports some redness to the area as well. Denies history of similar symptoms in the past. He states that he has had no fevers, chills, chest pain, shortness for breath, abdominal pain, nausea, vomiting or diarrhea. He does report history of seasonal allergies however states that he does not feel congested rather he has pain inside his bilateral in her nares. He states that he has felt some increased swelling to the top of his lip. He denies using any nasal sprays however states that he has been using saline rinses. No other complaints or concerns at this time. MD complaint: Bilateral nares swelling, pain Onset (ago): day(s) Relieving factors: none Exacerbating factors: none Associated symptoms: denies other symptoms Treatments prior to arrival: none Related Data Previous Rx's ?Medication ?Instructions ?Recorded cephalexin 500 mg capsule 500 mg PO QID 5 days #20 caps 07/16/24 Allergies Allergy/AdvReac Type Severity Reaction Status Date / Time No Known Allergies Allergy Verified 07/16/24 15:05 Review of Systems Review of Systems: Yes all other systems are reviewed and are negative Constitutional: Constitutional: Reports as per HPI, Denies body ache(s), Denies chills and Denies fever(s) Eyes: Eyes: Reports as per HPI, Denies change in vision and Denies eye discharge ENT: Reports system reviewed and no additional complaints, except as documented, Reports as per HPI, Reports Normal hearing present and Denies facial pain Cardiovascular: Cardiovascular: Reports as per HPI and Denies chest pain Respiratory: Respiratory: Reports as per HPI and Denies cough Gastrointestinal: Gastrointestinal: Reports as per HPI, Reports no additional gastrointestinal complaints, Denies abdominal pain, Denies diarrhea, Denies nausea and Denies vomiting Genitourinary: Genitourinary: Reports as per HPI Musculoskeletal: Musculoskeletal: Reports no additional musculoskeletal complaints and Reports as per HPI Integumentary/Breasts: Skin/Breast: Reports system reviewed and no additional complaints, except as docu, Reports as per HPI, Reports erythema, Denies rash and Denies wounds Neurologic: Reports Normal hearing present Psychiatric: Psychiatric: Reports no additional psychiatric complaints and Reports as per HPI Endocrine: Endocrine: Reports no additional endocrine complaints and Reports as per HPI Hematologic/Lymphatic: Hematologic/Lymphatic: Reports no additional hematologic/lymphatic complaints and Reports as per HPI Allergic/Immunologic: Allergic/Immunologic: Reports no additional allergic/immunologic complaints and Reports as per HPI PMF Past Medical History Attestation statement: The following information was validated with the patient. Medical History Spondylosis of lumbar spine Seasonal allergic rhinitis Obesity (BMI 30-39.9) History of COVID-19 Surgical History No pertinent past surgical history Family History Family History Brother Diabetes mellitus Social History Social History Household Members: Spouse and Children Housing: House Are you a primary caregivers homecare to a significant other at home: No Alcohol intake: never Patient Tobacco Use Status: Former Tobacco user e-Cigarette/Vaping Use: Never Used Advance Directives: No Advance Directives Information Provided: No service: No Current occupational status: employed 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 No drainage noted. Nares are widely patent, no inflamed nasal turbinates. No drainage. Head: Yes normal to inspection, Yes normocephalic and Yes atraumatic Ears: hearing grossly normal bilaterally General nose exam: Normal external nose present Face and sinus: Yes normal facial exam Mouth: Normal oral and palatal mucosa present, oropharynx normal and moist mucous membranes Throat: Yes posterior oropharynx normal Eyes General: appearance normal, both eyes and all related structures Eyelids: Yes eyelids normal Conjunctivae: conjunctivae normal Sclerae: sclerae normal Pupils: Equal, round and reactive pupils present EOM: EOMs intact bilaterally Neck Neck: Yes normal visual inspection, Yes full ROM and Yes no lymphadenopathy Lymphatic: no lymphadenopathy noted Chest Chest palpation & inspection: normal inspection of the chest Resp Effort & Inspection: normal respiratory effort and able to speak in complete sentences Auscultation: clear to auscultation bilaterally Cardio Rate: regular rate Rhythm: regular rhythm Heart sounds: S1 normal heart sound present and S2 normal heart sound present GI Inspection: Yes normal to inspection Skin General skin exam: no rashes or lesions noted Trauma: no lacerations or abrasions Wounds: no wounds Neuro General: patient oriented x3 and moves all extremities Cranial nerves: Yes Equal, round and reactive pupils present and Yes Normal hearing present Extrem General: Yes normal to inspection Right upper extremity: normal to inspection Left upper extremity: normal to inspection Left lower extremity: normal to inspection Course Course Course Narrative: This is an RME performed by Shanelle Ricci CNP: Additional HPI, ROS, PE not included below will be deferred to primary provider. Patient is a 49-year-old male presents emergency department for evaluation, he reports swelling to nostrils and upper lip, states started with a pain 2 days ago that progressively worsened, awoke today feeling as though bilateral nostrils and upper lip was swollen. Denies shortness of breath, difficulty breathing, known exposure to any allergens. Does not take any daily medications. Trialed saline nasal spray today without improvement. On examination there is erythema to the bilateral nasal turbinates, there is a single pustule noted on the left septum. No lesions of the oropharynx. No angioedema. No airway compromise. Objectively is not noted to be significantly swollen. Will trial dosage of Benadryl Medications Administered Discontinued Medications Generic Name Dose Route Start Last Admin Trade Name Freq PRN Reason Stop Dose Admin Diphenhydramine HCl 50 mg 07/16/24 15:05 07/16/24 15:08 Diphenhydramine Hcl 25 Mg Capsule PO 07/16/24 15:06 50 mg ONCE ONE Administration Medical Decision Making Medical Decision Making [facility] Narrative: This is a 49-year-old male who presents emergency department for concerns of in her near pain for the last 3 days. On arrival, vital signs within normal limits. He is speaking full sentences under no acute distress. Nares are widely patent, no edematous nasal turbinates. Patient does have tenderness, erythema and edema noted to the inner aspects of the nares, consistent with ear ly cellulitis. Also discussed with patient that this may be an allergic reaction however unlikely. Patient will be started on Keflex to treat for cellulitis. Given strict return precautions. He will follow-up with his primary care physician. Swabs for COVID, flu, and RSV however these symptoms do not correlate with this. Will call patient if positive. Patient stable for discharge. Differential Diagnosis Differential Diagnoses: The differential diagnosis associated with the presentation includes Cellulitis, allergic rhinitis, allergic reaction Discharge Plan Discharge Clinical Impression: Cellulitis of nostril Patient Disposition: Home, Self-Care Instructions: Cellulitis (ED) Additional Instructions: You were seen in the emergency department due to nasal pain and swelling. You likely have the start of a skin infection, please take prescribed medication as directed. Finish the entire course even if your symptoms improve. This may also be related to seasonal allergies therefore please consider starting an [id number] allergy med. You may apply lubricating Eucerin or Vaseline to the area to help for dryness. Please follow-up with your primary care this week to ensure that your symptoms are improving. If any new or worsening symptoms occur including but not limited to shortness of breath, chest pain, worsening swelling, please seek emergent care. Prescriptions: New cephalexin 500 mg capsule 500 mg PO QID 5 Days Qty: 20 0RF Stand Alone Forms: Work/School Release Print Language: Greek
[2024-07-16] MEDS: diphenhydrAMINE HCL 25 MG CAPSULE 50 MG PO (15:08)
[2024-07-16 16:02] VITALS: BP 149/87; PULSE 85; RESP 16; TEMP 36.7; O2SAT 99
[2024-07-16 16:13] VITALS: BP 149/87; PULSE 85; RESP 16; TEMP 36.7; O2SAT 99
[2024-07-16 17:01] LABS: Influenza A PCR NEGATIVE (Negative); Influenza B PCR NEGATIVE (Negative); Resp Syncy Virus RNA Qual PCR NEGATIVE (Negative); SARS COV2 PCR INHOUSE NEGATIVE (Negative)
== END 2024-07-16 16:14 | disposition home or self-care (01) ==
PROVIDERS: Nurse Practitioner Family; Emergency Provider Emergency Medicine Emergency Medical Services; PCP Nurse Practitioner Family
DX: J34.0 Abscess, furuncle and carbuncle of nose (principal); R22.9 Localized swelling, mass and lump, unspecified; Z03.818 Encounter for observation for suspected exposure to other biological agents ruled out
CPT/HCPCS: 0241U; 99283; 99284

== ENCOUNTER 2024-07-18 13:01 | Outpatient (AMB) | payer OTHER, SELFPAY ==
--- NOTE | 2024-07-18 13:04 | AM.OFFWIN_ITS ---
Intake Vital Signs 07/18/24 13:09 Weight 224 lb 1 oz BP 130/82 Blood Pressure Location Rt brachial Position Sitting Pulse 86 Pulse Source Pulse Oximeter Temp 98.4 F Temp Source Oral Pulse Oximetry (%) 97 Oxygen Delivery Method Room Air Intake Visit Reasons: EP Inflammation/pain in nose/sinus Intake Note: Patient here inflammation in nose that has been present for a couple of days. went to ED and was put on antibiotics but is still having pain. Patient Tobacco Use Status: Former Tobacco user Allergies No Known Allergies Allergy (Verified 07/18/24 13:10) Do you need a note to return to daycare/school/sports/work: Yes HPI HPI Comments History of Present Illness Details History of Present Illness - The patient is a 49-year-old male pres enting with nasal pain and suspected skin infection. - Symptoms commenced 4 days ago, leading to pronounced nasal pain and inflammation, and worsened by Wednesday. - He sought emergency care, receiving an antibiotic (Cephalexin) on the . - The patient?s workplace environment ex posed him to significant tobacco dust and old insulation, which might have aggravated his nasal condition; however, although present earlier, exacerbation is uncertain. - Reports of associated headaches, chill s, and body aches emerged post- antibiotic initiation on the . - Nasal swelling has subsided, though na simona irritation remains; initially, lip involvement was observed but now improved. - The patient has not been using any top ical emollients. Physical Exam General: Cooperative, healthy appearing, comfortable, no acute distress and well developed Orientation: Patient oriented x3 Limitations: No limitations Head: Normal to inspection Ears: Hearing grossly normal bilaterally Nose: bilateral inner nares with slight edema and erythema Face and sinus: normal facial exam Eyes: Appearance normal, both eyes and all related structures Neck: Normal visual inspection and Yes full ROM Respiratory: Normal respiratory effort and able to speak in complete sentences. Skin: No rashes or lesions noted Neuro: Patient oriented x3 Extremities: Normal to inspection [facility], [facility] Medical History Spondylosis of lumbar spine Seasonal allergic rhinitis Obesity (BMI 30-39.9) History of COVID-19 Surgical History No pertinent past surgical history Family History Brother Diabetes mellitus Social History Household Members: Spouse and Children Housing: House Are you a primary healthcare analyst to a significant other at home: No Alcohol intake: never Patient Tobacco Use Status: Former Tobacco user e-Cigarette/Vaping Use: Never Used service: No Current occupational status: employed 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 Current occupational exposures/hazards: No Cognitive needs: No Hearing needs: No Vision needs: Yes Review of Systems Const All systems reviewed & are unremarkable except as noted in HPI and below Physical Exam Vital Signs: Last Vital Signs Temp 98.4 F 07/18/24 13:09 Pulse 86 07/18/24 13:09 BP 130/82 07/18/24 13:09 Pulse Ox 97 07/18/24 13:09 Oxygen Delivery Method Room Air 07/18/24 13:09 Assessment & Plan Assessment & Plan (1) Cellulitis: Code(s): L03.90 - Cellulitis, unspecified Qualifiers: Site of cellulitis: face Qualified Code(s): L03.211 - Cellulitis of face Plan: The patient will continue Cephalexin therapy for nasal cellulitis, completing the course to the , as swelling has decreased. A topical emollient can be applied for nasal dryness and healing support. To avoid potential irritation from workplace exposures, additional leave is recommended until the , with a return timed close to antibiotic regimen completion. The patient?s associated symptoms of headaches, chills, and body pain are likely unrelated to the current medication and do not necessitate further actions. An excuse note covering leave extension by 2 days will be arranged as needed. Patient was informed and verbally consented to the use of an ambient scribe for clinic note documentation during this visit. Coding Level of Care Code Est Pt Level 3 (61562) Diagnoses Cellulitis of face L03.211 Site of cellulitis: face
[2024-07-18 13:09] VITALS: BP 130/82; PULSE 86; TEMP 36.9; O2SAT 97
== END 2024-07-18 13:48 | disposition home or self-care (01) ==
PROVIDERS: PCP Nurse Practitioner Family; Visit Provider Physician Assistant
DX: L03.211 Cellulitis of face (principal)

== ENCOUNTER → 2024-07-18 13:01 | Outpatient (BNVA) | payer OTHER, SELFPAY | PROVIDERS: PCP Nurse Practitioner Family; Visit Provider Physician Assistant | DX: L03.211 Cellulitis of face (principal) | CPT/HCPCS: 99212 ==

== ENCOUNTER 2024-07-27 12:41 | Outpatient (AMB) | payer OTHER, SELFPAY ==
--- NOTE | 2024-07-27 12:45 | AM.OFFWIN_ITS ---
Intake Vital Signs 07/27/24 12:51 Weight 224 lb BP 130/80 Blood Pressure Location Rt brachial Position Sitting Pulse 72 Pulse Source Pulse Oximeter Pulse Oximetry (%) 98 Oxygen Delivery Method Room Air Intake Visit Reasons: EP-nose pain & inflamation Intake Note: Patient here for inflammation and pain in nose that has been present for about 2 weeks. Patient Tobacco Use Status: Former Tobacco user Allergies No Known Allergies Allergy (Verified 07/27/24 12:50) Do you need a note to return to daycare/school/sports/work: No HPI HPI Comments History of Present Illness Details History - The patient is a 49-year-old male pres enting with complaints of continued nasal inflammation and pain. - The onset of nasal symptoms was approx imately two weeks ago. - Initially prescribed Keflex on June 28 for the nasal condition, there was no significant improvement despite finishing the course. - Due to lack of improvement, the patien t was then prescribed doxycycline, initially intended for a ten-day course but completed over five days as pt misread the instructions. - The patient noticed symptom relief stuart rosina during initial treatment days, with the pain intensity reducing from 10 to 2. - Despite this, persistent nasal congest ion particularly in the right nostril with a noticeable bulge - The patient used an [id number] n castro spray but did not report other nasal spray usage. Physical Exam General: Cooperative, healthy appearing, comfortable and no acute distress Orientation/consciousness: Patient oriented x3 Limitations: No limitations Head: Normal to inspection Ears: Hearing grossly normal bilaterally, external ears normal and TM's normal bilaterally Nose: Inflammation and pain present, right nare with erythematous polyp, ttp Face and sinus: Normal facial exam Eyes: Appearance normal, both eyes and all related structures Neck: Normal visual inspection Respiratory: Normal respiratory effort, able to speak in complete sentences, no respiratory distress, not tachypneic, no tripod positioning and no use of accessory muscles Skin: No rashes or lesions noted Neuro: Patient oriented x3 Extremities: Normal to inspection and Yes no clubbing, cyanosis or edema [facility] Medical History Spondylosis of lumbar spine Seasonal allergic rhinitis Obesity (BMI 30-39.9) History of COVID-19 Surgical History No pertinent past surgical history Family History Brother Diabetes mellitus Social History Household Members: Spouse and Children Housing: House Are you a primary hiv/aids care nurse to a significant other at home: No Alcohol intake: never Patient Tobacco Use Status: Former Tobacco user e-Cigarette/Vaping Use: Never Used service: No Current occupational status: employed 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 Current occupational exposures/hazards: No Cognitive needs: No Hearing needs: No Vision needs: Yes Review of Systems Const All systems reviewed & are unremarkable except as noted in HPI and below Physical Exam Vital Signs: Last Vital Signs Pulse 72 07/27/24 12:51 BP 130/80 07/27/24 12:51 Pulse Ox 98 07/27/24 12:51 Oxygen Delivery Method Room Air 07/27/24 12:51 Assessment & Plan Assessment & Plan (1) Nasal polyp: Code(s): J33.9 - Nasal polyp, unspecified Plan: I have recommended continuing doxycycline at 100 mg twice daily for an additional five days and initiated Flonase, a steroid nasal spray. The Flonase will be applied specifically to the area of the suspected polyp to decrease its size and reduce inflammation. Extending the doxycycline course is intended to address the fact that the patient was supposed to be on the medication twice a day for 10 days but instead he took all of the tablets in 5 days. Additionally, the use of Flonase aims to directly impact the polyp by reducing its size and associated discomfort. Should symptoms persist following this treatment regimen, patient should message his PCP for consideration for an ENT referral. Patient was informed and verbally consented to the use of an ambient scribe for clinic note documentation during this visit (2) Cellulitis: Code(s): L03.90 - Cellulitis, unspecified Qualifiers: Site of cellulitis: face Qualified Code(s): L03.211 - Cellulitis of face Plan: as above Medications: New doxycycline hyclate 100 mg PO BID 10 tabs 0RF fluticasone propionate 50 mcg/actuation administer into each nostril 1 spray intranasal Q12H 16 grams 0RF Coding Level of Care Code Est Pt Level 3 (57543) Diagnoses Nasal polyp J33.9 Cellulitis of face L03.211 Site of cellulitis: face
[2024-07-27 12:51] VITALS: BP 130/80; PULSE 72; O2SAT 98
== END 2024-07-27 13:24 | disposition home or self-care (01) ==
PROVIDERS: PCP Nurse Practitioner Family; Visit Provider Physician Assistant
DX: J33.9 Nasal polyp, unspecified (principal); L03.211 Cellulitis of face

== ENCOUNTER → 2024-07-27 12:41 | Outpatient (BNVA) | payer OTHER, SELFPAY | PROVIDERS: PCP Nurse Practitioner Family; Visit Provider Physician Assistant | DX: J33.9 Nasal polyp, unspecified (principal); L03.211 Cellulitis of face | CPT/HCPCS: 99212 ==

== ENCOUNTER 2024-08-02 08:32 | Outpatient (AMB) | payer OTHER, SELFPAY ==
[2024-08-02 08:35] VITALS: BP 128/82; PULSE 66; TEMP 37; O2SAT 98; BMI 34.1
--- NOTE | 2024-08-02 08:35 | MHC.PC.OV ---
Vital Signs 08/02/24 08:35 Height 5 ft 8 in Weight 224 lb BMI 34.1 BP 128/82 Blood Pressure Location Rt brachial Position Sitting Pulse 66 Pulse Source Pulse Oximeter Temp 98.6 F Temp Source Oral Pulse Oximetry (%) 98 Oxygen Delivery Method Room Air Intake Visit Reasons: ED F/U Digital Program Manager Required: No Accompanied by: Self / Same As Patient Allergies No Known Allergies Allergy (Verified 08/02/24 08:36) Medication List - Last Reconciled 08/02/24 by Tyrell Carpio, MARKET DEVELOPMENT MANAGER- amoxicillin-pot clavulanate 875-125 mg 1 tab PO BID 10 days fluticasone propionate 50 mcg/actuation 1 spray intranasal Q12H Tobacco use date assessed: 04/10/24 Dental Screening Dental Screen Date: 04/10/24 [facility] Medical History Spondylosis of lumbar spine Seasonal allergic rhinitis Obesity (BMI 30-39.9) History of COVID-19 Surgical History No pertinent past surgical history Family History Brother Diabetes mellitus Social History Household Members: Spouse and Children Housing: House Are you a primary career law clerk to a significant other at home: No Alcohol intake: never Patient Tobacco Use Status: Former Tobacco user e-Cigarette/Vaping Use: Never Used service: No Current occupational status: employed 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 Current occupational exposures/hazards: No Cognitive needs: No Hearing needs: No Vision needs: Yes Questionnaire Thrive Questionnaire Date Thrive assessed: 08/02/24 I am a: Patient What is your living situation today?: I have a steady place to live Within the past 12 months, did the food you bought not last and you didn't have the money to get more?: Never true Within the past 12 months, did you worry whether your food would run out before you got money to buy more?: Never true Do you have trouble paying for medicines?: No Do you have trouble getting transportation to medical appointments?: No Do you have trouble paying your heating and electricity bill?: No Do you have trouble taking care of your child, family member or friend?: No Do you have trouble with day-to-day activities such as bathing, preparing meals, shopping, managing finances, etc.?: No Are you currently unemployed and looking for a job?: No Are you interested in more education?: No Please select the resources that you would like help with: None Currently or been in a relationship where the following occur: No concerns reported THRIVE Score: 0 KAEL-7 AMB Questionnaire KAEL-7 Date KAEL - 7 assessed: 04/10/24 Source: Developed by Drs. Bob Badillo, Fide Langley, Albino Ulloa and colleagues, with an educational janine from [employer]. Physical exam (Primary Care) Vital Signs: Last Vital Signs Temp 98.6 F 08/02/24 08:35 Pulse 66 08/02/24 08:35 BP 128/82 08/02/24 08:35 Pulse Ox 98 08/02/24 08:35 Oxygen Delivery Method Room Air 08/02/24 08:35 BMI result Body Mass Index 34.1 Tobacco/Smoking Status: Tobacco use Status Tobacco use date assessed 04/10/24 08/02/24 08:36 Patient Tobacco Use Status Former Tobacco user 08/02/24 08:36 e-Cigarette/Vaping Use Never Used 08/02/24 08:36 Thrive Assessment: Date of Thrive Assessment Date Thrive assessed 08/02/24 08/02/24 08:36 Currently or been in a relationship where the following occur: No concerns reported Coding Level of Care Code Est Pt Level 4 (37899) Diagnoses Nasal polyp J33.9 Cellulitis of face L03.211 Site of cellulitis: face Assessment & Plan Assessment & Plan (1) Nasal polyp: Code(s): J33.9 - Nasal polyp, unspecified Category: Medical (2) Cellulitis: Code(s): L03.90 - Cellulitis, unspecified Category: Medical Qualifiers: Site of cellulitis: face Qualified Code(s): L03.211 - Cellulitis of face Plan . Orders: Referrals Ear/Nose/Throat Referral J33.9 - Nasal polyp, unspecified, L03.211 - Cellulitis of face Medications: New amoxicillin-pot clavulanate 875-125 mg 1 tab PO BID 10 days 20 tabs 0RF
== END 2024-08-02 10:22 | disposition home or self-care (01) ==
LOC: HO.HMCC 08:32
PROVIDERS: PCP Nurse Practitioner Family; Visit Provider Nurse Practitioner Family
DX: J33.9 Nasal polyp, unspecified (principal); L03.211 Cellulitis of face

== ENCOUNTER → 2024-08-02 08:32 | Outpatient (BNVA) | payer OTHER, SELFPAY | PROVIDERS: PCP Nurse Practitioner Family; Visit Provider Nurse Practitioner Family | DX: J33.9 Nasal polyp, unspecified (principal); L03.211 Cellulitis of face | CPT/HCPCS: 99212 ==

== ENCOUNTER 2024-08-30 07:05 | Outpatient (AMB) | payer OTHER, SELFPAY ==
--- NOTE | 2024-08-30 07:39 | A.OFFPC_ITS ---
Intake Visit Reasons: aflac forms Allergies No Known Allergies Allergy (Verified 08/02/24 08:36) Tobacco use date assessed: 04/10/24 Dental Screening Dental Screen Date: 04/10/24 HPI aflac forms HPI Details History of Present Illness The patient is a 49-year-old male presenting with a request to complete documen tation for medical leave under the Family and Medical Leave Act (FMLA) due to a recent episode of facial cellulitis. This condition caused the patient to be absent from his usual activities from July 17, 2024, to July 27, 2024, for management and recovery. The facial cellulitis began due to infection around the nasal passages, specifically affecting both the internal and external nares. During this episode, the patient was treated with multiple antibiotic courses and reported multiple evaluations by different healthcare providers. He currently reports no active symptoms, including the absence of fever, chills, nausea, vomiting, epistaxis, chest pain, or dyspnea. An ENT follow-up is planned to evaluate any anatomical issues contributing to the onset of cellulitis. The patient is presently doing well and free of any acute symptoms. Review of Systems - General: Denies fever, chills - ENT: Denies epistaxis, reports past na simona involvement in cellulitis - Respiratory: Denies shortness of breat h - Cardiovascular: Denies chest pain - Gastrointestinal: Denies nausea, vomit ing Plan During this consultation, we focused on completing the [place] paperwork due to the patient's prior facial cellulitis. The patient received multiple antibiotic treatments during the observed leave period from July 17 to July 27, 2024, with resolution of symptoms. Referral to an ENT is recommended for further assessment of potential nasal anatomical contributors. Presently, the patient's symptoms have resolved, and monitoring for recurrence or new symptoms remains essential. Discussion Notes We discussed the completed [facility] documentation relevant to his absence caused by facial cellulitis. The importance of completing the treatment regimens he received was emphasized. Plans for an ENT follow-up were discussed to evaluate nasal anatomical structures that might have contributed to his condition. He understood the need for observing any reemergence of symptoms and agreed to attend the ENT consultation as scheduled. As of now, his cellulitis has resolved, and he feels generally well. Patient Instructions - Follow up with ENT as scheduled. - Monitor for any reemerging symptoms li ke redness, swelling, or pain in the facial area. - Continue to check for fever or any sig ns of infection. - Seek medical attention if any symptoms return or worsen. 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 Current occupational exposures/hazards: No Cognitive needs: No Hearing needs: No Vision needs: Yes Questionnaire Thrive Questionnaire Date Thrive assessed: 04/03/24 I am a: Patient What is your living situation today?: I have a steady place to live Within the past 12 months, did the food you bought not last and you didn't have the money to get more?: Never true Within the past 12 months, did you worry whether your food would run out before you got money to buy more?: Never true Do you have trouble paying for medicines?: No Do you have trouble getting transportation to medical appointments?: No Do you have trouble paying your heating and electricity bill?: No Do you have trouble taking care of your child, family member or friend?: No Do you have trouble with day-to-day activities such as bathing, preparing meals, shopping, managing finances, etc.?: No Are you currently unemployed and looking for a job?: No Are you interested in more education?: No Please select the resources that you would like help with: None Currently or been in a relationship where the following occur: No concerns reported THRIVE Score: 0 KAEL-7 AMB Questionnaire KAEL-7 Date KAEL - 7 assessed: 04/10/24 Source: Developed by Fide Aleman.W. Shivam, Albino Ulloa and colleagues, with an educational janine from [employer]. Physical exam (Primary Care) Tobacco/Smoking Status: Tobacco use Status Tobacco use date assessed 04/10/24 08/02/24 08:36 Patient Tobacco Use Status Former Tobacco user 08/02/24 08:36 e-Cigarette/Vaping Use Never Used 08/02/24 08:36 Thrive Assessment: Date of Thrive Assessment Date Thrive assessed 04/03/24 08/30/24 07:06 Currently or been in a relationship where the following occur: No concerns reported Telehealth Telehealth Telehealth Platform: [employer] Location of provider rendering services: practice address Location of patient: address on file Patient Identification confirmed using: Name, : Yes Telehealth method: video Patient verbally consented to treatment: Yes Patient verbally consented to billing insurance company: Yes Patient informed of any privacy concerns related to visit: Yes Minutes spent on Phone/Video with Pt.: 15 Coding Level of Care Code Tele Est Pt Level 3 (93289) Diagnoses Nasal polyp J33.9 Cellulitis of face L03.211 Site of cellulitis: face Assessment & Plan Assessment & Plan (1) Nasal polyp: Code(s): J33.9 - Nasal polyp, unspecified Category: Medical (2) Cellulitis: Code(s): L03.90 - Cellulitis, unspecified Category: Medical Qualifiers: Site of cellulitis: face Qualified Code(s): L03.211 - Cellulitis of face Plan .
== END 2024-08-30 08:14 | disposition home or self-care (01) ==
LOC: HO.HMCC 07:06
PROVIDERS: PCP Nurse Practitioner Family; Visit Provider Nurse Practitioner Family
DX: J33.9 Nasal polyp, unspecified (principal); L03.211 Cellulitis of face

== ENCOUNTER → 2024-08-30 07:05 | Outpatient (BNVA) | payer OTHER, SELFPAY | PROVIDERS: PCP Nurse Practitioner Family; Visit Provider Nurse Practitioner Family ==

== ENCOUNTER 2024-09-07 14:23 | Outpatient (REF) | payer OTHER, SELFPAY ==
--- NOTE | ~2024-09-07 | CT_ITS ---
EXAMINATION: CT ABDOMEN AND PELVIS WITHOUT AND WITH CONTRAST CLINICAL INFORMATION: Gross hematuria. DLP: 1085 mGY*cm COMPARISON: Ultrasound performed May 22, 2024 TECHNIQUE: Noncontrast CT of the abdomen and pelvis is performed followed by split bolus contrast-enhanced images using 85 mL Omnipaque 350 contrast. Postcontrast imaging is performed during the combined nephrogram and excretion phase. Sagittal and coronal reformatted images were obtained on the technologist's workstation for both the precontrast and postcontrast phases. This CT examination was performed using dose optimization techniques as appropriate, variously including the following: *Automated exposure control *Adjustment of mA and/or kV according to patient size (this includes techniques or standardized protocols for targeted exams where dose is matched to indication/reason for exam; i.e. extremities or head) *Use of iterative reconstruction technique FINDINGS: LUNG BASES: The visualized lung bases are unremarkable. LIVER, GALLBLADDER, AND BILIARY TREE: Mild diffuse fatty changes are present in the liver, somewhat sparing the lateral segments. 2 Low attenuating lesions in the left hepatic lobe are consistent with benign simple hepatic cysts. The gallbladder is unremarkable with no evidence of radiopaque gallstones, gallbladder wall thickening, or obvious pericholecystic inflammatory changes. PANCREAS: Unremarkable. SPLEEN: Unremarkable. ADRENAL GLANDS: Unremarkable. KIDNEYS AND URETERS: Simple renal cysts are present bilaterally, the largest is on the left measuring 10 cm long axis There is possibly a 1 mm nonobstructing stone in the upper pole right kidney. No other stones are identified in the kidneys are retracted. There is concentration and excretion of contrast into both ureters, surgically. Contrast also reaches the bladder. BLADDER: Unremarkable. GASTROINTESTINAL TRACT: The small and large bowel are unremarkable. The appendix is unremarkable. ABDOMINAL WALL: Umbilical hernia contains adipose tissue. The anterior wall of the loop of small bowel passes directly beneath the dehiscence in the linea alba. There appears to be a small mesenteric vessel extending into the herniation. Herniated fat does not show increased density otherwise. LYMPH NODES: Normal. VASCULAR: Unremarkable. PELVIC VISCERA: Unremarkable. OSSEUS STRUCTURES: Moderate degenerative disc disease and facet arthropathy is noted in the spine There is mild to moderate degenerative change in right hip joint, consistent with osteoarthritis. CT/CT urogram IMPRESSION: Possible 1 mm nonobstructing stone in the upper pole the right kidney. Benign simple renal cysts. Fatty liver. Umbilical hernia contains adipose tissue and probably a short segment of a mesenteric vessel. A small bowel loop passes to the margin of the dehiscent lineal alba but does not extend into the herniation. Electronically signed by: Ramakrishna Nevarez MD 09/07/2024 05:40 PM EDT
[2024-09-07] MEDS: iohexoL 350 MG/ML 100 ML INFUS..BTL IV (16:19)
== END 2024-09-07 14:24 | disposition home or self-care (01) ==
LOC: HO.CT 14:23
PROVIDERS: PCP Nurse Practitioner Family; Visit Provider Nurse Practitioner Family
DX: R31.0 Gross hematuria (principal)
CPT/HCPCS: 74178; Q9967

== ENCOUNTER → 2024-09-07 14:25 | Outpatient (BNV) | payer OTHER, SELFPAY | PROVIDERS: PCP Nurse Practitioner Family; Visit Provider Radiology Diagnostic Radiology | DX: N28.1 Cyst of kidney, acquired (principal); K42.9 Umbilical hernia without obstruction or gangrene; K76.0 Fatty (change of) liver, not elsewhere classified | CPT/HCPCS: 74178 ==

== ENCOUNTER 2024-09-21 11:57 | Outpatient (REF) | payer OTHER, SELFPAY ==
[2024-09-21 16:59] LABS: Urine Cytology See Pathology rpt
== END 2024-09-21 11:58 | disposition home or self-care (01) ==
LOC: HO.LNP 11:57
PROVIDERS: PCP Nurse Practitioner Family; Visit Provider Nurse Practitioner Family
DX: R31.29 Other microscopic hematuria (principal); Z13.9 Encounter for screening, unspecified; N28.1 Cyst of kidney, acquired; N20.0 Calculus of kidney
CPT/HCPCS: 81003; 88112; 99212

== ENCOUNTER 2024-09-21 11:57 | Outpatient (AMB) | payer OTHER, SELFPAY ==
--- NOTE | 2024-09-21 12:02 | A.OFFVIS_ITS ---
Intake Visit Reasons: 3m/CT Intake Note: Patient presents today for follow up on: micro hematuria and CT Scan Results Imaging Completed: 09/07/24 Urology Medications: none Blood Thinner: none Smoker: smoked for less than a year, 20yrs ago Passenger Screener Required: No Accompanied by: Self / Same As Patient Allergies No Known Allergies Allergy (Verified 09/21/24 14:06) Medication List - Last Reconciled 09/21/24 by TIGRE Lau No Known Home Meds HPI Comments Details: Jose Alberto is a very pleasant 49-year-old male patient of Dr. Mann. He has a past medical history of spondylosis of lumbar spine, seasonal allergies, and obesity. He presents to the office today for follow-up of his microscopic hematuria. Of note, patient was seen approximately 3 months ago as a new patient for microscopic hematuria at which time we discussed potential causes of microscopic hematuria as well as further workup in risks and benefits of these interventions. Recent CT results were reviewed with the patient today possible 1 mm nonobstructing stone in the upper pole of the right kidney. Benign simple renal cysts noted. Previous urine cytology results were reviewed 06/20 Negative for high-grade urothelial carcinoma. When asked he does report episodes of nocturia however does endorse to be drinking fluids prior to bed. He does feel episodes of nocturia are variable as he does have times where he is able to sleep without needing to get up to urinate. In office urinalysis resu lts reviewed with the patient today. We did discuss potential causes of nocturia as well as microscopic hematuria. He otherwise denies incontinence, gross/visible hematuria, dysuria, foul smelling urine, changes to urinary stream, flank pain, fever, and or chills. He also reports episodes of urinary frequency however relates this to his increased consumption of fluids. He does have a history of a previous nicotine dependence as a teenager however reports this was socially and no longer than a year. 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 We discussed at length potential causes of microscopic hematuria as well as further workup in risks and benefits of these interventions. I discussed reasons for blood in the urine may include but are not limited to kidney stones, cancer in the urinary tract, BPH, kidney stone disease or inflammatory conditions of the urinary tract. I have discussed workup to include cystoscopy evaluation. He otherwise offers no other issues or concerns at this time. In review of patient's chart it appears PSA 04/22 1.2. 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 Current occupational exposures/hazards: No Cognitive needs: No Hearing needs: No Vision needs: Yes Review of Systems Const All systems reviewed & are unremarkable except as noted in HPI and below Physical Exam Const General: cooperative, healthy appearing, comfortable, no acute distress, well developed, alert and awake Orientation/consciousness: patient oriented x3 Limitations: no limitations HEENT Head: Yes normal to inspection, Yes normocephalic and Yes atraumatic Ears: hearing grossly normal bilaterally Eyes General: appearance normal, both eyes and all related structures Neck Neck: Yes normal visual inspection and Yes trachea midline Chest Chest palpation & inspection: normal inspection of the chest Resp Effort & Inspection: normal respiratory effort and able to speak in complete sentences Cardio Rate: regular rate GI Inspection: Yes normal to inspection General: Yes no CVA tenderness Back/Spine/Pelvis Back: no CVA tenderness Skin General skin exam: no rashes or lesions noted Neuro General: patient oriented x3 Extrem General: Yes normal to inspection Psych Appearance: grossly normal and well kempt Mental Status: mental status grossly normal Speech and movement: Normal speech and movement present and Clear speech present Affect: normal affect Attitude: cooperative Thought process: Normal thought process present Thought content: Normal thought content present Insight: Fair insight present (Psych) Judgement: Fair judgement present (Psych) Results AMB Urinalysis, Automated UA Leukoctes 0 Vanda/uL Last Edit by [facility] on 09/21/24 12:13 UA Nitrite Last Edit by [facility] on 09/21/24 12:13 UA Urobilinogen 0.2 mg/dL Last Edit by [facility] on 09/21/24 12:1 3 UA Protein 0 mg/dL Last Edit by [facility], [facility] on 09/21/24 12:13 UA pH 7.5 Last Edit by [facility] Stacy, [facility] on 09/21/24 12:13 UA Blood 25 Evens/uL Last Edit by [facility] Stacy, [facility] on 09/21/24 12:13 UA Specific Lincoln 1.010 Last Edit by [facility], [facility] on 09/21/24 12: 13 UA Ketone Last Edit by [facility], [facility] on 09/21/24 12:13 UA Bilirubin 0 mg/dL Last Edit by [facility], [facility] on 09/21/24 12:13 UA Glucose 0 mg/dL Last Edit by [facility], [facility] on 09/21/24 12:13 Results Reviewed Results Reviewed: Laboratory Last Values Urine pH (Auto) 7.5 09/21/24 12:12 Specific Lincoln (Auto) 1.010 09/21/24 12:12 Urine Protein (Auto) 0 mg/dL 09/21/24 12:12 Glucose (UA)(Auto) 0 mg/dL 09/21/24 12:12 Urine Blood (Auto) 25 Evens/uL 09/21/24 12:12 Urine Bilirubin (Auto) 0 mg/dL 09/21/24 12:12 Urine Urobilinogen (Auto) 0.2 mg/dL 09/21/24 12:12 Leukocyte Esterase (Auto) 0 Vanda/uL 09/21/24 12:12 Ordering Physician: Yocasta Kovacs [facility] Date of Service: 09/07/24 FINDINGS: LUNG BASES: The visualized lung bases are unremarkable. LIVER, GALLBLADDER, AND BILIARY TREE: Mild diffuse fatty changes are present in the liver, somewhat sparing the lateral segments. 2 Low attenuating lesions in the left hepatic lobe are consistent with benign simple hepatic cysts. The gallbladder is unremarkable with no evidence of radiopaque gallstones, gallbladder wall thickening, or obvious pericholecystic inflammatory changes. PANCREAS: Unremarkable. SPLEEN: Unremarkable. ADRENAL GLANDS: Unremarkable. KIDNEYS AND URETERS: Simple renal cysts are present bilaterally, the largest is on the left measuring 10 cm long axis There is possibly a 1 mm nonobstructing stone in the upper pole right kidney. No other stones are identified in the kidneys are retracted. There is concentration and excretion of contrast into both ureters, surgically. Contrast also reaches the bladder. BLADDER: Unremarkable. GASTROINTESTINAL TRACT: The small and large bowel are unremarkable. The appendix is unremarkable. ABDOMINAL WALL: Umbilical hernia contains adipose tissue. The anterior wall of the loop of small bowel passes directly beneath the dehiscence in the linea alba. There appears to be a small mesenteric vessel extending into the herniation. Herniated fat does not show increased density otherwise. LYMPH NODES: Normal. VASCULAR: Unremarkable. PELVIC VISCERA: Unremarkable. OSSEUS STRUCTURES: Moderate degenerative disc disease and facet arthropathy is noted in the spine There is mild to moderate degenerative change in right hip joint, consistent with osteoarthritis. IMPRESSION: Possible 1 mm nonobstructing stone in the upper pole the right kidney. Benign simple renal cysts. Assessment & Plan Assessment & Plan (1) Kidney cysts: Code(s): N28.1 - Cyst of kidney, acquired Category: Medical (2) Microscopic hematuria: Code(s): R31.29 - Other microscopic hematuria Category: Medical (3) Nephrolithiasis: Code(s): N20.0 - Calculus of kidney Category: Medical Plan In office urinalysis results reviewed with the patient today; as noted above; will send for urine cytology. Recent CT results reviewed with the patient today; as noted above. We discussed potential causes of microscopic hematuria and nocturia as well as further workup in risks and benefits of these interventions. We will continue with surveillance monitoring at this time. We discussed importance of limiting fluids 2-3 hours prior to bed to decrease episodes of nocturia. We discussed importance of adequate hydration relation to nephrolithiasis as well as overall health and well-being. Will obtain renal ultrasound in 6 months Follow-up in 6 months with imaging to be completed prior; or sooner with any issues, concerns, and or questions. Orders: Orders Urine Cytology Today R31.29 - Other microscopic hematuria AMB Urinalysis Automated Today Z13.9 - Encounter for screening, unspecified Patient Instructions: The patient had an opportunity to ask questions regarding the treatment plan. All questions were answered. Physical exam, labs, and imaging were discussed and reviewed in detail. As well as risks, benefits, and discussion of treatment choices. No major barriers to understanding were identified. The patient expressed understanding and agreement with the above treatment plan. The patient was made aware they should contact our office by phone for worsening of their current condition, the appearance of new symptoms, or with any questions or concerns. Compliance is encouraged with any medications and follow up testing that is ordered. It is a privilege to be allowed the opportunity to participate in? your urological care.? Again, if you have any questions or concerns If you have any questions or concerns please do not hesitate to contact me. The office is [phone]. This note is constructed using voice recognition software. While every effort has been made to ensure accuracy carpenter packing errors may have been included. Yours sincerely, TIGRE Lau Coding Level of Care Code Est Pt Level 3 (98419) Complex EM visit Add On G2211 Diagnoses Kidney cysts N28.1 Microscopic hematuria R31.29 Nephrolithiasis N20.0
== END 2024-09-21 12:40 | disposition home or self-care (01) ==
LOC: HO.HUSH 11:58
PROVIDERS: PCP Nurse Practitioner Family; Visit Provider Nurse Practitioner Family
DX: N28.1 Cyst of kidney, acquired (principal); R31.29 Other microscopic hematuria; N20.0 Calculus of kidney; Z13.9 Encounter for screening, unspecified
CPT/HCPCS: 99213

== ENCOUNTER 2024-09-26 15:50 | Outpatient (AMB) | payer OTHER, SELFPAY ==
--- NOTE | 2024-09-26 15:52 | A.OFFVIS_ITS ---
Vital Signs 09/26/24 15:56 Height 5 ft 8 in Weight 221 lb BMI 33.6 BP 148/80 H Blood Pressure Location Rt brachial Position Sitting Pulse 66 Pulse Source Pulse Oximeter Pulse Oximetry (%) 98 Oxygen Delivery Method Room Air Intake Visit Reasons: Colonoscopy screening Intake Note: New pt for initial colo screening. Elevated LFT hx. CC; Pt denies any GI sx or concerns at this time. No pertinent FMHx. Cemetery Counselor Required: No Accompanied by: Self / Same As Patient Allergies No Known Allergies Allergy (Verified 09/26/24 15:53) HPI HPI Colonoscopy screening : Details: 49 year old? male with past medical history of nephrolithiasis, kidney cysts, liver cyst, transaminitis, obesity is here today for pre colonoscopy screening.? Patient was sent to us by his PCP.? This is his first colonoscopy screening.? Patient denies any gastrointestinal symptoms in the past or at present.? Denies any personal or family history of gastrointestinal disease, colon polyps, or CRC.? Patient never had anesthesia in the past.? Negative for history of sleep apnea.? Denies any history of cardiac, renal, pulmonary, or hepatic disease.?? No history of infectious? diseases like hepatitis A, B, C, HIV or tuberculosis.? Patient is not on any anticoagulation. Patient was found to have elevated liver enzymes, ultrasound done and showed liver cysts. 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 Current occupational exposures/hazards: No Cognitive needs: No Hearing needs: No Vision needs: Yes Review of Systems Const Denies weight gain and Denies weight loss ENT Reports no additional complaints, Denies dysphagia and Denies odynophagia Card Reports no additional complaints Resp Reports no additional complaints GI Denies abdominal pain, Denies belching, Denies melena, Denies bloating, Denies change in bowel habits, Denies dysphagia, Denies excessive flatus, Denies dyspepsia, Denies heartburn, Denies diarrhea, Denies loose stools, Denies nausea, Denies odynophagia and Denies vomiting Reports no additional complaints Musc Reports no additional complaints Neuro Reports no additional complaints Psych Reports no additional complaints Endo Reports no additional complaints Physical Exam Vital Signs: Last Vital Signs Pulse 66 09/26/24 15:56 BP 148/80 H 09/26/24 15:56 Pulse Ox 98 09/26/24 15:56 Oxygen Delivery Method Room Air 09/26/24 15:56 BMI result Body Mass Index 33.6 Const General: healthy appearing, no acute distress and well developed Nutritional Appearance: well nourished and obese Orientation/consciousness: patient oriented x3 Resp Effort & Inspection: normal respiratory effort, able to speak in complete sentences, no tracheal deviation and symmetric chest movement Auscultation: clear to auscultation bilaterally Cardio Rate: regular rate GI Inspection: Yes normal to inspection, No distended and Yes obesity Palpation (GI): Soft to palpation, not firm, nontender and No hepatosplenomegaly present Auscultation: normal bowel sounds General: Yes no CVA tenderness Back/Spine/Pelvis Back: no CVA tenderness Skin General skin exam: elasticity normal, turgor normal and dry skin Neuro General: patient oriented x3 Psych Appearance: grossly normal Mental Status: mental status grossly normal Assessment & Plan Assessment & Plan (1) Screening for colon cancer: Code(s): Z12.11 - Encounter for screening for malignant neoplasm of colon Category: Medical (2) Elevated liver enzymes: Code(s): R74.8 - Abnormal levels of other serum enzymes Category: Medical (3) Liver cyst: Code(s): K76.89 - Other specified diseases of liver Category: Medical Plan Patient denies any GI, cardiac or respiratory symptoms. Transaminitis found, liver cyst found on ultrasound. Patient will be sent for MRI as well as repeating liver panel. Will discuss results after his procedure.? Denies any issues with anesthesia in the past.? Denies any history of sleep apnea.? No history infectious diseases in the past or present.? Not on any anticoagulation therapy.? No family or personal history of colon cancer or polyps.? Patient denies melena, hematochezia, unintentional weight loss or ribbon like stools.? Discussed at length the pre-procedure,? prep, diet & medications as well as what to expect prior, during and after the procedure.?? Stressed the importance of good bowel prep.? Recommended the use of Vaseline or Calmoseptine OTC & baby wipes with bowel movements to promote comfort.? ?Patient verbalizes understanding and agrees to plan of care.? He was given the opportunity to ask questions and all questions answered.? We will see him after the procedure.? Orders: Orders MR abdomen wo/w con Today K76.89 - Other specified diseases of liver Liver Panel Today R74.01 - Elevation of levels of liver transaminase levels Medications: New bisacodyl (Dulcolax (bisacodyl)) take 4 tabs at noon the day before your colonoscopy 20 mg (4 x 5 mg) PO ONCE 4 tabs 0RF constipation 1 day Z12.11 - Encounter for screening for malignant neoplasm of colon polyethylene glycol 3350 (Miralax) As directed by gastroenterology department at [facility] [place] 238 grams PO ONCE 238 grams 0RF Z12.11 - Encounter for screening for malignant neoplasm of colon Coding Level of Care Code New Pt Level 3 (17320) Diagnoses Screening for colon cancer Z12.11 Elevated liver enzymes R74.8 Liver cyst K76.89 Time Spent (min) 40 Comment 30 minutes spent with patient and additional 10 minutes spent reviewing his records
[2024-09-26 15:56] VITALS: BP 148/80; PULSE 66; O2SAT 98; BMI 33.6
--- OUTSIDE RECORDS SUMMARY | 2024-09-26 16:21 | XMS_ITS | Continuity of Care Document ---
Author Organization [facility] - [facility], [facility] Address [address] [place] [phone] Care Team Providers Care Professor Of Food Biochemistry Name Role Phone JAZMICHCLAY RHIANNA Primary Care Provider Assessment Encounter Date Assessment Date Assessment LastModified by Organization Details LastModified Time 09/22/2024 09/22/2024 1. Nasal cellulitis The history suggests a resolved nasal cellulitis which was initially treated with oral antibiotics. There is no current indication of active infection, and the patient reported previous nasal swelling during the condition. Continued monitoring without additional imaging is appropriate as the symptoms resolved without surgical intervention. 2. Nasal polyp (resolved) Examination confirmed the resolution of the nasal polyp. The presence of a deviated septum was noted, which did not necessitate immediate intervention. Recommendations include protective measures against particulate exposure at the workplace and saline irrigation for nasal hygiene. [email or web address] Not available 09/22/2024 12:42:56 Plan of Treatment Reminders Order Date Submit Date Provider Last Modified By Organization Details Last Modified Time Details Appointments None record ed. Lab None record ed. Referral None record ed. Procedures None record ed. Surgeries None record ed. Imaging None record ed. Medication Orders None record ed. Patient TargetsNo targets recorded. Patient Instructions Encounter Date Encounter Id Patient Instructions Last Modified By Organization Details Last Modified Time 09/22/2024 [id number] Please note: Parts of this encounter note have been generated by AI based on audio conversation. Patient consent was required prior to utilizing this technology. Content review was required prior to finalizing the note. [email or web address] Not available 09/22/2024 10:42:11 Reason for Referral None Reported. Problems Name Problem SNOMED Code Status Onset Date Resolution Date Notes Provider Name and Address Organization Details Recorded Time Cellulitis of nasal mucous membrane 9027510638543 00 Active 2024 GURPREET GARZA MD [address] [address], [place], [phone], [facility] 10:42:07 Polyp of nasal cavity and/or nasal sinus 726235791 Active 2024 GURPREET GARZA MD [address] [place] [address], [place], [phone], [facility] 12:43:19 Problem Notes None recorded. Procedures Surgical History Date Name Laterality Status Provider Name and Address Organization Details Recorded Time 09/22/2024 NasalEndos copy_DP completed GURPREET GARZA MD [address] [place] [address], [place], [phone], [facility] 09/22/2024 10:41:52 Imaging Results None recorded. Procedure Notes None recorded. Medical Equipment None Reported. Allergies No known drug allergies Medications Name Sig Start Date Stop Date Status Note LastModified by Organization Details LastModified Time cyclobenzap rine 10 mg tablet TAKE 1 TABLET BY MOUTH EVERY 8 HOURS 09/22 completed Not Available Not Available Not Available prednisone 20 mg tablet TAKE 2 TABLETS BY MOUTH EVERY DAY 09/22 completed Not Available Not Available Not Available tramadol 50 mg tablet TAKE 1 TABLET BY MOUTH EVERY 12 HOURS NEEDED FOR PAIN FOR 2 WEEKS 09/22 completed Not Available Not Available Not Available methocarbam ol 750 mg tablet TAKE 1 TABLET ORALLY EVERY 12 HOURS NEEDED FOR SPASMS 09/22 completed Not Available Not Available Not Available cephalexin 500 mg capsule TAKE 1 CAPSULE BY MOUTH 4 TIMES A DAY FOR 5 DAYS 09/22 completed Not Available Not Available Not Available dexamethaso ne 4 mg tablet TAKE 1 TABLET BY MOUTH 3 TIMES A DAY 09/22 completed Not Available Not Available Not Available ibuprofen 600 mg tablet TAKE 1 TABLET BY MOUTH EVERY 6 HOURS NEEDED FOR PAIN OR FEVER 09/22 completed Not Available Not Available Not Available fluticasone propionate 50 mcg/actuati on nasal spray,suspe nsion SPRAY 1 SPRAY INTO EACH NOSTRIL EVERY 12 HOURS 09/22 completed Not Available Not Available Not Available doxycycline hyclate 100 mg tablet TAKE 1 TABLET BY MOUTH TWICE A DAY UNTIL FINISHED 09/22 completed Not Available Not Available Not Available amoxicillin 875 mg-potassiu m clavulanate 125 mg tablet TAKE 1 TABLET BY MOUTH TWICE A DAY FOR 10 DAYS 09/22 completed Not Available Not Available Not Available cyclobenzap rine 5 mg tablet TAKE 1 TO 2 TABLETS BY MOUTH 3 TIMES A DAY NEEDED FOR MUSCLE SPASM 09/22 completed Not Available Not Available Not Available Vitals Date Recorded Body height Body mass index (BMI) Body weight Provider Name and Address Organization Details Last Updated DateTime 09/22/2024 172.72 cm 34.2 kg/m2 909281.28 g COLLEEN STAFFORD [place] - [facility] 09/22/2024 10:25:43 Social History None recorded. Functional Status Question Answer Note LastModified by Organizat ion Details LastModified Time Do you use any illicit or recreational drugs? No Information not available 09/22/2024 What is your level of alcohol consumption? Occasional Information not available 09/22/2024 Mental Status None recorded. Family History Nothing Reported. Medical History Condition Response Tonsil Infections N Emphysema N Glaucoma N Depression N COPD N Nasal or Sinus Problems N Anesthesia Complications N Arthritis N Hearing Loss N Cancer N Stroke N High Cholesterol N Liver Disease N Headaches N Fibromyalgia N Speech Delay N Kidney Disease N Allergies/Hayfever N Heart Problems N Anxiety N Migraines N Thyroid Problems N Developmental Delay N Anemia N Immune System Disorder N Heart Attack ([place]) N Other Skin Condition N Diabetes N Rhinitis N Bleeding Disorder N Food Allergy N Hyperlipidemia N Dementia N Nasal polyps N Asthma N Sleep Disorder N GERD/Reflux N Hypertension N Past Encounters Encounter ID Performer Location Encounter Start Date Encounter Closed Date Diagnosis/Indication Diagnosis SNOMED-CT Code Diagnosis ICD10 Code Diagnosis Note [id number] GURPREET GARZA MD [facility] [address] [address] 09/22/2024 10:09:04 09/22/2024 10:42:11 Cellulitis of nasal mucous membrane [id number] 16620 J34.0 Polyp of n castro cavity and/or nasal sinus 165841149 J33.9 Health Concerns Section Related Observation LastModified by Organization Detai ls LastModified Time None Recorded Concern Status LastModified by Organization Details LastModified Time None Recorded Payers Encounter Date Sequence Insurance Name Policy Number Policy Ramon Covered Member ID Ramon Member ID Guarantor Name 09/22/2024 1 [facility] [id number] Jose Alberto Bunch [id number] Jose Alberto Bunch Notes Date Note Type Note Provider Name and Address Organization Details Recorded Time 09/22/2024 text/html nasal polyp The patient is a 49-year-old male presenting with a prior episode of nasal cellulitis treated with oral antibiotics. The infection involved internal nasal passages, with swelling noted on the upper lip and anterior nose during the active stage. Initial symptoms led to an ER visit. 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 No pus or persistent symptoms were reported post-treatment, and nasal discharge was documented during infection. GURPREET GARZA MD [address] [place] [address], [phone], [facility] - [facility] 09/22/2024 12:43:37
== END 2024-09-26 16:30 | disposition home or self-care (01) ==
LOC: HO.HGI 15:51
PROVIDERS: PCP Nurse Practitioner Family; Visit Provider Nurse Practitioner Family
DX: Z01.818 Encounter for other preprocedural examination (principal); Z12.11 Encounter for screening for malignant neoplasm of colon; R74.8 Abnormal levels of other serum enzymes; K76.89 Other specified diseases of liver
CPT/HCPCS: 99203

== ENCOUNTER → 2024-09-26 15:50 | Outpatient (BNVA) | payer OTHER, SELFPAY | PROVIDERS: PCP Nurse Practitioner Family; Visit Provider Nurse Practitioner Family | DX: Z12.11 Encounter for screening for malignant neoplasm of colon (principal); R74.8 Abnormal levels of other serum enzymes; K76.89 Other specified diseases of liver | CPT/HCPCS: 99202 ==

== ENCOUNTER → 2024-10-18 13:03 | Outpatient (BNV) | payer OTHER, SELFPAY | PROVIDERS: PCP Nurse Practitioner Family; Visit Provider Radiology Diagnostic Radiology | DX: N28.1 Cyst of kidney, acquired (principal); K76.89 Other specified diseases of liver | CPT/HCPCS: 74183 ==

== ENCOUNTER 2024-10-18 13:07 | Outpatient (REF) | payer OTHER, SELFPAY ==
--- NOTE | ~2024-10-18 | MR_ITS ---
EXAMINATION: MR ABDOMEN WITHOUT THEN WITH IV CONTRAST HISTORY: K76.89 - Other specified diseases of liver COMPARISON: Correlation is made with an unenhanced CT of the abdomen dated 09/07/2024. TECHNIQUE: Axial in and out of phase T1-weighted gradient echo, axial diffusion weighted, and axial and coronal HASTE T2 with fat saturation images were obtained through the abdomen. Subsequently, fat suppressed axial and coronal T1-weighted images were obtained after the intravenous administration of 10 mL Gadavist. FINDINGS: Liver: There is no loss of signal intensity in the liver on opposed phase imaging to suggest steatosis. There are scattered cysts within the liver, the largest of which is in the left lobe measuring 1.4 cm in size. There is no enhancing liver mass. The hepatic and portal veins are patent. There is no intrahepatic biliary dilatation. Gallbladder/biliary tree: No gallstones are identified. The common bile duct is normal in caliber. No intraluminal filling defects are identified to suggest choledocholithiasis. Spleen: The spleen is unremarkable. Pancreas: The pancreas is unremarkable. There is no enhancing pancreatic mass. The pancreatic duct is normal in caliber. Adrenals: The adrenal glands are unremarkable. Kidneys: There is a 9.2 cm cyst at the lower pole of the left kidney and an additional 3.2 cm lower pole cyst. At the upper pole of the left kidney, there is a 1.3 cm T2 hypointense and T1 hyperintense nonenhancing mass compatible with a proteinaceous/hemorrhagic cyst. Subcentimeter cysts are noted in the right kidney. There is no hydronephrosis. Lymph nodes: There is no retroperitoneal lymphadenopathy in the upper abdomen. Fluid: There is no ascites in the upper abdomen. Visualized bowel: The visualized small and large bowel loops are unremarkable in appearance. Visualized bones: The visualized bones demonstrate normal marrow signal intensity. MR/MR abdomen wo/w con IMPRESSION: 1. Hepatic cysts as described. The liver is otherwise unremarkable in appearance. There is no evidence of hepatic steatosis. 2. 1.3 cm proteinaceous/hemorrhagic cyst at the upper pole of the left kidney. Additional bilateral simple renal cysts as described. Electronically signed by: Bob Stiles MD 10/18/2024 02:12 PM EDT
--- OUTSIDE RECORDS SUMMARY | 2024-10-18 13:35 | XMS_ITS | Data Portability ---
Author Organization [facility] - [facility], Allergy Address [address] [address] Care Team Providers Care Chief Controller Tower Name Role Phone RACHELRHIANNA WILLIAMSON Primary Care Provider Assessment Encounter Date Assessment [...] By Organization Details Last Modified Time 09/22/2024 [id number] Please note: Parts of this encounter note [...] Recorded Time Cellulitis of nasal mucous membrane 5525322514270 00 Active 2024 GURPREET GARZA MD [address] [address], [place], [phone], [facility] 10:42:07 Polyp of nasal cavity and/or nasal sinus 533090769 Active 2024 GURPREET GARZA MD [address] [facility] [address], [place], [address], [facility] 12:43:19 Problem Notes None recorded. Procedures Surgical History Date Name Laterality Status Provider Name and Address Organization Details Recorded Time 09/22/2024 NasalEndos copy_DP completed GURPREET GARZA MD [address] [address], [place], [phone], [facility] 09/22/2024 10:41:52 Imaging Results None recorded. [...] Available Not Available Not Available amoxicillin 875 mg-roman toscano clavulanate 125 mg tablet TAKE 1 TABLET [...] Updated DateTime 09/22/2024 172.72 cm 34.2 kg/m2 968910.28 g COLLEEN STAFFORD [place] - [facility] 09/22/2024 10:25:43 Social History None recorded. Functional Status Question Answer Note LastModified by Organizat ion Details LastModified Time Do you use any illicit or recreational drugs? No Information not available 09/22/2024 What is your level of alcohol consumption? Occasional Information not available 09/22/2024 Mental Status None recorded. Family History Nothing Reported. Medical History Condition Response Allergies/Hayfever N Heart Problems N Anxiety N Tonsil Infections N Emphysema N Migraines N Thyroid Problems N Glaucoma N Depression N COPD N Developmental Delay N Nasal or Sinus Problems N Anemia N Immune System Disorder N Anesthesia Complications N Heart Attack ([place]) N Other Skin Condition N Diabetes N Rhinitis N Bleeding Disorder N Food Allergy N Arthritis N Hearing Loss N Hyperlipidemia N Cancer N Stroke N Dementia N Nasal polyps N Asthma N High Cholesterol N Sleep Disorder N GERD/Reflux N Liver Disease N Headaches N Fibromyalgia N Hypertension N Speech Delay N Kidney Disease N Past Encounters Encounter ID Performer Location Encounter Start Date Encounter Closed Date Diagnosis/Indication Diagnosis SNOMED-CT Code Diagnosis ICD10 Code Diagnosis Note [id number] GURPREET GARZA MD [facility] [address] [address] 09/22/2024 10:09:04 09/22/2024 10:42:11 Cellulitis of nasal mucous membrane [id number] 04276 J34.0 Polyp of n castro cavity and/or nasal sinus 099525912 J33.9 Health Concerns Section Related Observation LastModified by Organization Detai ls LastModified Time None Recorded Concern Status LastModified by Organization Details LastModified Time None Recorded Advance Directives Directive None Recorded Payers Insurance Date Sequence Insurance Name Policy Number Policy Ramon Covered Member ID Ramon Member ID Guarantor Name 09/22/2024 1 [facility] [id number] Jose Alberto Bunch [id number] Jose Alberto Bunch Notes Date Note [...] was documented during infection. GURPREET GARZA MD [address] [place] [address], [phone], [facility] - [facility] 09/22/2024 12:43:37
== END 2024-10-18 13:08 | disposition home or self-care (01) ==
LOC: HO.MRI 13:07
PROVIDERS: PCP Nurse Practitioner Family; Visit Provider Nurse Practitioner Family
DX: K76.89 Other specified diseases of liver (principal)
CPT/HCPCS: 74183; A9585

== ENCOUNTER 2024-12-25 11:28 | Outpatient (REF) | payer OTHER, SELFPAY ==
--- NOTE | ~2024-12-25 | US_ITS ---
CLINICAL HISTORY: N28.1 - Cyst of kidney, acquired Renal ultrasound Comparison: US - US ABDOMEN COMPLETE - 05/22/24 08:58 EST Findings: The kidneys are normal in echotexture bilaterally. No hydronephrosis. The right kidney is normal in size, measuring 11.0cm in length. The left kidney is enlarged, measuring 15.4cm in length. There are multiple left renal cysts: Lower pole simple cyst measuring 2.8 x 2.3 x 3.2 cm , previously measuring 3.2 x 2.5 x 2.9 cm Lower pole simple cyst measuring 10.7 x 8.2 x 9.8 cm , previously measuring 10.3 x 0.1 x 9.6 cm Upper pole cyst with thin internal septation measuring 1.0 x 1.1 x 1.1 cm, not visualized on the prior study Upper pole simple cyst measuring 1.5 x 1.3 x 1.5 cm, not visualized on the prior study Impression: No acute findings. Multiple left renal cysts. This document has been electronically signed by: Rafia Bar MD on 12/25/2024 15:24:12
== END 2024-12-25 11:29 | disposition home or self-care (01) ==
LOC: HO.HMGCX 11:28
PROVIDERS: PCP Nurse Practitioner Family; Visit Provider Nurse Practitioner Family
DX: N20.0 Calculus of kidney (principal); N28.1 Cyst of kidney, acquired
CPT/HCPCS: 76775

== ENCOUNTER → 2024-12-25 11:31 | Outpatient (BNV) | payer OTHER, SELFPAY | PROVIDERS: PCP Nurse Practitioner Family; Visit Provider Radiology Diagnostic Radiology | DX: N28.1 Cyst of kidney, acquired (principal) | CPT/HCPCS: 76775 ==

== ENCOUNTER 2025-03-19 11:36 | Outpatient (AMB) | payer OTHER, SELFPAY ==
--- NOTE | 2025-03-19 11:39 | A.OFFVIS_ITS ---
Intake Visit Reasons: 6m/US/UA Intake Note: Patient presents today for 6 mo follow up Imaging Completed: Renal US 12/25/24 Urology Medications: none Blood Thinner: none Smoker: smoked for less than a year, 20yrs ago Pricing Lead Required: No Accompanied by: Self / Same As Patient Allergies No Known Allergies Allergy (Verified 03/19/25 14:20) Medication List - Last Reconciled 03/19/25 by TIGRE Lau bisacodyl (Dulcolax (bisacodyl)) 20 mg (4 x 5 mg) PO ONCE 1 day polyethylene glycol 3350 (Miralax) 238 grams PO ONCE HPI Comments Details: Jose Alberto is a very pleasant 49-year-old male patient of Dr. Mann. He has a past medical history of spondylosis of lumbar spine, seasonal allergies, and obesity. He presents to the office today for follow-up of his microscopic hematuria. In discussion with the patient today reports to be doing and feeling well. He denies having had any bothersome urological issues or concerns since his last office visit here. Most recent renal imaging results reviewed with the patient today 12/21 no acute findings. Multiple left renal cysts. In office urinalysis results reviewed with the patient today 2+ microscopic hematuria otherwise within normal limits. We did again review potential causes of microscopic hematuria as well as further treatment options and risks and benefits of these treatment options. Previous urine cytology results are as follows: Cytology: 06/20 & 09/20 Negative for high-grade urothelial carcinoma. He does report intermittent episodes of nocturia up to 3 times per night however describes these episodes as infrequent and self managing. He otherwise denies any bothersome urinary issues. He denies incontinence, gross/visible hematuria, dysuria, foul smelling urine, changes to urinary stream, flank pain, fever, and or chills. He does have a history of a previous history of nicotine dependence as a teenager however reports this was socially and no longer than a year. 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 We discussed at length potential causes of microscopic hematuria as well as further workup in risks and benefits of these interventions. I discussed reasons for blood in the urine may include but are not limited to kidney stones, cancer in the urinary tract, BPH, kidney stone disease or inflammatory conditions of the urinary tract. I have discussed workup to include cystoscopy evaluation. He otherwise offers no other issues or concerns at this time. In review of patient's chart it appears PSA 04/22 1.2. All questions were answered. He otherwise offers no other issues or concerns at this time. 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 Current occupational exposures/hazards: No Cognitive needs: No Hearing needs: No Vision needs: Yes Review of Systems Const All systems reviewed & are unremarkable except as noted in HPI and below Physical Exam Const General: cooperative, healthy appearing, comfortable, no acute distress, well developed, alert and awake Orientation/consciousness: patient oriented x3 Limitations: no limitations HEENT Head: Yes normal to inspection, Yes normocephalic and Yes atraumatic Ears: hearing grossly normal bilaterally Eyes General: appearance normal, both eyes and all related structures Neck Neck: Yes normal visual inspection and Yes trachea midline Chest Chest palpation & inspection: normal inspection of the chest Resp Effort & Inspection: normal respiratory effort and able to speak in complete sentences Cardio Rate: regular rate GI Inspection: Yes normal to inspection General: Yes no CVA tenderness Back/Spine/Pelvis Back: no CVA tenderness Skin General skin exam: no rashes or lesions noted Neuro General: patient oriented x3 Extrem General: Yes normal to inspection Psych Appearance: grossly normal and well kempt Mental Status: mental status grossly normal Speech and movement: Normal speech and movement present and Clear speech present Affect: normal affect Attitude: cooperative Thought process: Normal thought process present Thought content: Normal thought content present Insight: Fair insight present (Psych) Judgement: Fair judgement present (Psych) Results AMB Urinalysis, Automated UA Leukoctes 0 Vanda/uL Last Edit by Shayy Venegas [facility] on 03/19/25 11:46 UA Nitrite Negative Last Edit by Shayy Venegas, [facility] on 03/19/25 11:46 UA Urobilinogen 0.2 mg/dL Last Edit by Shayy Venegas [facility] on 03/19/25 11:46 UA Protein 0 mg/dL Last Edit by Shayy Venegas, [facility] on 03/19/25 11:46 UA pH 6.0 Last Edit by Shayy Venegas [facility] on 03/19/25 11:46 UA Blood 80 Evens/uL Last Edit by Shayy Venegas, [facility] on 03/19/25 11:46 UA Specific Shevlin 1.015 Last Edit by Shayy Venegas [facility] on 03/19/25 11:4 6 UA Ketone Negative Last Edit by Shayy Venegas [facility] on 03/19/25 11:46 UA Bilirubin 0 mg/dL Last Edit by Shayy Venegas, [facility] on 03/19/25 11:46 UA Glucose 0 mg/dL Last Edit by Shayy Venegas [facility] on 03/19/25 11:46 Results Reviewed Results Reviewed: Laboratory Last Values Urine pH (Auto) 6.0 03/19/25 11:44 Specific Shevlin (Auto) 1.015 03/19/25 11:44 Urine Protein (Auto) 0 mg/dL 03/19/25 11:44 Glucose (UA)(Auto) 0 mg/dL 03/19/25 11:44 Urine Ketones (Auto) Negative 03/19/25 11:44 Urine Blood (Auto) 80 Evens/uL 03/19/25 11:44 Urine Nitrite (Auto) Negative 03/19/25 11:44 Urine Bilirubin (Auto) 0 mg/dL 03/19/25 11:44 Urine Urobilinogen (Auto) 0.2 mg/dL 03/19/25 11:44 Leukocyte Esterase (Auto) 0 Vanda/uL 03/19/25 11:44 Date of Service: 12/25/24 Procedure(s): US renal BI Findings: The kidneys are normal in echotexture bilaterally. No hydronephrosis. The right kidney is normal in size, measuring 11.0cm in length. The left kidney is enlarged, measuring 15.4cm in length. There are multiple left renal cysts: Lower pole simple cyst measuring 2.8 x 2.3 x 3.2 cm , previously measuring 3.2 x 2.5 x 2.9 cm Lower pole simple cyst measuring 10.7 x 8.2 x 9.8 cm , previously measuring 10.3 x 0.1 x 9.6 cm Upper pole cyst with thin internal septation measuring 1.0 x 1.1 x 1.1 cm, not visualized on the prior study Upper pole simple cyst measuring 1.5 x 1.3 x 1.5 cm, not visualized on the prior study Impression: No acute findings. Multiple left renal cysts. Assessment & Plan Assessment & Plan (1) Kidney cysts: Code(s): N28.1 - Cyst of kidney, acquired Category: Medical (2) Nephrolithiasis: Code(s): N20.0 - Calculus of kidney Category: Medical (3) Microscopic hematuria: Code(s): R31.29 - Other microscopic hematuria Category: Medical Plan In office urinalysis results with the patient today; as noted above; will send for urine cytology. Previous urine cytology results were reviewed. Most recent renal imaging results reviewed with the patient today; as noted above. He currently denies any bothersome urinary issues or concerns. He reports be happy with current voiding parameters. We did review again potential causes of microscopic hematuria as well as further workup in risks and benefits of these intervention.s We did discuss workup to include in office cystoscopy. He would like to proceed with surveillance monitoring at this time. All questions were answered. Will obtain PSA Follow-up in 6 months with urinalysis and PSA; or sooner with any issues, concerns, and or questions. Orders: Orders AMB Urinalysis Automated Today N13.8 - Other obstructive and reflux uropathy, N40.1 - Benign prostatic hyperplasia with lower urinary tract symptoms Prostate Specific Antigen 6 Months Z12.5 - Encounter for screening for malignant neoplasm of prostate Urine Cytology Today R31.29 - Other microscopic hematuria Patient Instructions: The patient had an opportunity to ask questions regarding the treatment plan. All questions were answered. Physical exam, labs, and imaging were discussed and reviewed in detail. As well as risks, benefits, and discussion of treatment choices. No major barriers to understanding were identified. The patient expressed understanding and agreement with the above treatment plan. The patient was made aware they should contact our office by phone for worsening of their current condition, the appearance of new symptoms, or with any questio ns or concerns. Compliance is encouraged with any medications and follow up testing that is ordered. It is a privilege to be allowed the opportunity to participate in? your urological care.? Again, if you have any questions or concerns If you have any questions or concerns please do not hesitate to contact me. The office is [phone]. This note is constructed using voice recognition software. While every effort has been made to ensure accuracy circulating process inspector errors may have been included. Yours sincerely, TIGRE Lau Coding Level of Care Code Est Pt Level 3 (49608) Diagnoses Kidney cysts N28.1 Nephrolithiasis N20.0 Microscopic hematuria R31.29
== END 2025-03-19 12:02 | disposition home or self-care (01) ==
LOC: HO.HUSH 11:37
PROVIDERS: PCP Nurse Practitioner Family; Visit Provider Nurse Practitioner Family
DX: N28.1 Cyst of kidney, acquired (principal); N20.0 Calculus of kidney; R31.29 Other microscopic hematuria; N40.1 Benign prostatic hyperplasia with lower urinary tract symptoms; N13.8 Other obstructive and reflux uropathy
CPT/HCPCS: 99213

== ENCOUNTER 2025-03-19 11:36 | Outpatient (REF) | payer OTHER, SELFPAY ==
--- OUTSIDE RECORDS SUMMARY | 2025-03-19 15:05 | XMS_ITS | Data Portability ---
Author Organization [facility] - [facility], Allergy Address [address] [address] Care Team Providers Care Credit Rating Checker Name Role Phone RACHELCLAY RHIANNA Primary Care Provider [phone] Assessment Encounter Date Assessment Date Assessment LastModified [...] By Organization Details Last Modified Time 09/22/2024 [id number] Please note: Parts of this encounter note [...] Recorded Time Cellulitis of nasal mucous membrane [id number] 00 Active 2024 GURPREET GARZA MD [address] [address], [place], [phone], [facility] 10:42:07 Polyp of nasal cavity and/or nasal sinus [id number] Active 2024 GURPREET GARZA MD [address] [facility], [place], [address], [facility] 12:43:19 Problem Notes None recorded. Procedures Surgical History Date Name Laterality Status Provider Name and Address Organization Details Recorded Time 09/22/2024 NasalEndos copy_DP completed GURPREET GARZA MD [address] [address], [place], [phone], [facility] 09/22/2024 10:41:52 Imaging Results None recorded. Procedure [...] Updated DateTime 09/22/2024 172.72 cm 34.2 kg/m2 636200.28 g COLLEEN STAFFORD [place] - [facility] 09/22/2024 10:25:43 Social History None recorded. Functional [...] Emphysema N Migraines N Thyroid Problems N COPD N Depression N Developmental Delay N Glaucoma N Nasal or Sinus Problems N Anemia N Immune System Disorder N Anesthesia Complications N Heart Attack ([place]) N Other Skin Condition N Diabetes N Rhinitis N Bleeding Disorder N Food Allergy N Hearing Loss N Arthritis N Hyperlipidemia N Cancer N Stroke N Dementia N Nasal polyps N Asthma N Sleep Disorder N High Cholesterol N GERD/Reflux N Liver Disease N Headaches N Fibromyalgia N Hypertension N Speech Delay N Kidney Disease N Past Encounters Encounter ID Performer Location Encounter Start Date Encounter Closed Date Diagnosis/Indication Diagnosis SNOMED-CT Code Diagnosis ICD10 Code Diagnosis IMO Codes Diagnosis Note [id number] GURPREET GARZA MD [facility] [address] [address] 09/22/2024 10:09:04 09/22/2024 10:42:11 Cellulitis of nasal mucous membrane [id number] 14504 J34.0 [id number] Polyp of n castro cavity and/or nasal sinus 292997551 J33.9 15580 Health Concerns Section Related Observation LastModified by Organization Detai ls LastModified Time None Recorded Concern Status LastModified by Organization Details LastModified Time None Recorded Advance Directives Directive None Recorded Payers Insurance Date Sequence Insurance Name Policy Number Policy Ramon Covered Member ID Ramon Member ID Guarantor Name 09/22/2024 1 [facility] [id number] Jose Alberto Bunch [id number] Jose Alberto Bunch Notes Date Note [...] documented during infection. GURPREET GARZA MD [address] [place] [address], [phone], [facility] - [facility] 09/22/2024 12:43:37
== END 2025-03-19 11:37 | disposition home or self-care (01) ==
LOC: HO.LAB 11:36
PROVIDERS: PCP Nurse Practitioner Family; Visit Provider Nurse Practitioner Family
DX: R31.29 Other microscopic hematuria (principal); N28.1 Cyst of kidney, acquired; N20.0 Calculus of kidney; N13.8 Other obstructive and reflux uropathy; N40.1 Benign prostatic hyperplasia with lower urinary tract symptoms; Z12.5 Encounter for screening for malignant neoplasm of prostate
CPT/HCPCS: 81003; 88112; 99212